=== PATIENT | female | born 1995 | race Caucasian/White ===

== ENCOUNTER → 2020-03-19 | Outpatient (CLI) | payer BC ==
--- NOTE | 2020-03-19 11:56 | MR ---
EXAMINATION TYPE: MR brain wo con DATE OF EXAM: 03/19/2020 COMPARISON: NONE HISTORY: Migraine without aura per order. Headaches getting worse everyday per patient. TECHNIQUE: Multiplanar, multisequence imaging of the brain and brainstem is performed without IV cont rast. FINDINGS: Diffusion weighted images demonstrate no evidence of a recent infarct or other diffusion abnormality. There is no extraaxial fluid collection or significant white matter signal abnormality. The ventricu lar system and cisternal spaces are normal in size and appearance. The brain volume is age appropria te. Midline structures demonstrate normal morphology. The craniocervical junction appears within normal limits. Normal vascular flow voids are present. The visualized sinuses are clear and the globes are i ntact. Some prominent but subcentimeter lymph nodes incidentally noted in visualized portion of the b ilateral neck. IMPRESSION: No suspicious white matter changes. No Chiari type I malformation. Fairly unremarkable st udy.
== END | disposition home or self-care (01) ==
LOC: RADMRIMAIN 06:32
PROVIDERS: ATTEND Family Medicine
DX: G43.009 Migraine without aura, not intractable, without status migrainosus (principal)
CPT/HCPCS: 70551

== ENCOUNTER 2020-05-21 10:36 | Emergency (ER) | payer BC ==
[2020-05-21 10:58] VITALS: RESP 18; TEMP 99.3
[2020-05-21] MEDS ORDERED: KETOROLAC 15 MG/ML 1 ML VIAL IVP STA (11:18)
[2020-05-21] MEDS ORDERED: MECLIZINE 12.5 MG TAB PO STA (11:18)
[2020-05-21] MEDS ORDERED: ONDANSETRON 4 MG/2 ML VIAL IVP STA (11:18)
[2020-05-21] MEDS ORDERED: SODIUM CHLORIDE 0.9% 1,000 ML IV STA (11:18)
[2020-05-21 11:53] LABS: Basophils % (A) 0 %; Eosinophils # (A) 0.1 k/uL (0-0.7); Eosinophils % (A) 1 %; HCT 44.2 % (34.0-46.0); HGB 14.1 gm/dL (11.4-16.0); Lymphocytes # (A) 1.5 k/uL (1.0-4.8); Lymphocytes % (A) 18 %; MCH 25.7 pg (25.0-35.0); MCV 80.5 fL (80.0-100.0); Monocytes # (A) 0.4 k/uL (0-1.0); Monocytes % (A) 5 %; Neutrophils # (A) 6.1 k/uL (1.3-7.7); Neutrophils % (A) 74 %; Platelet Count 313 k/uL (150-450); RBC 5.49 m/uL (3.80-5.40); RDW 14.8 % (11.5-15.5); WBC 8.2 k/uL (3.8-10.6)
[2020-05-21 12:02] LABS: ALT 19 U/L (4-34); African American GFR (CKD) >90 (>60 ml/min/1.73 sqM); Albumin 4.3 g/dL (3.5-5.0); Anion Gap 9 mmol/L; Blood Urea Nitrogen 13 mg/dL (7-17); Carbon Dioxide 23 mmol/L (22-30); Chloride 108 mmol/L (98-107); Glucose 95 mg/dL (74-99); Non-African American GFR(CKD) >90 (>60 ml/min/1.73 sqM); Sodium 140 mmol/L (137-145); Total Bilirubin 0.6 mg/dL (0.2-1.3); Total Protein 7.7 g/dL (6.3-8.2)
[2020-05-21 12:07] LABS: AST 33 U/L (14-36); Alkaline Phosphatase 82 U/L (38-126); Potassium 4.8 mmol/L (3.5-5.1)
[2020-05-21 12:13] LABS: Appearance,Urine Clear (Clear); Bilirubin,Urine Negative (Negative); Blood,Urine Moderate (Negative); Color,Urine Yellow; Glucose,Urine (UA) Negative (Negative); Ketones,Urine Negative (Negative); Leukocyte Esterase,Urine Negative (Negative); Mucus,Urine Rare /hpf; Nitrite,Urine Negative (Negative); Protein,Urine Trace (Negative); RBC,Urine >182 /hpf (0-5); Specific Gravity,Urine 1.024 (1.001-1.035); Squamous Epithelial Cell,Urine <1 /hpf (0-4); Urobilinogen,Urine <2.0 mg/dL (<2.0); WBC,Urine 2 /hpf (0-5)
--- NOTE | 2020-05-21 12:20 | ED ---
Dizziness HPI - General Chief Complaint: Dizziness Stated Complaint: dizziness, vomiting Time Seen by Provider: 05/21/20 11:10 Source: patient Mode of arrival: ambulatory Limitations: no limitations - Related Data Home Medications Medication Instructions Recorded Confirmed Ferrous Sulfate [Feosol] 325 mg PO DAILY 05/21/20 05/21/20 Propranolol LA [Inderal LA] 80 mg PO DAILY 05/21/20 05/21/20 SUMAtriptan SUCCINATE [Imitrex] 50 mg PO DAILY PRN 05/21/20 05/21/20 Topiramate 50 mg PO DAILY 05/21/20 05/21/20 Previous Rx's Medication Instructions Recorded Ondansetron Odt [Zofran Odt] 4 mg PO Q8HR PRN #10 tab 05/21/20 Allergies Allergy/AdvReac Type Severity Reaction Status Date / Time No Known Allergies Allergy Verified 05/21/20 11:50 Review of Systems ROS Statement: Those systems with pertinent positive or pertinent negative responses have been documented in the HPI. ROS Other: All systems not noted in ROS Statement are negative. Past Medical History Additional Past Medical History / Comment(s): headache History of Any Multi-Drug Resistant Organisms: None Reported Past Surgical History: No Surgical Hx Reported Past Psychological History: No Psychological Hx Reported Smoking Status: Never smoker Past Alcohol Use History: None Reported Past Drug Use History: Marijuana General Exam Limitations: no limitations Course Vital Signs 05/21/20 05/21/20 10:55 11:44 Temperature 99.3 F Pulse Rate 86 92 Respiratory 18 18 Rate Blood Pressure 141/81 150/101 O2 Sat by Pulse 98 100 Oximetry EKG Findings - EKG Comments: EKG Findings:: 11:20 normal sinus rhythm rate of 78 NV 118 QRS 82 QT/QTC 366/417 Medical Decision Making - Medical Decision Making 25-year-old presented for ongoing headaches, dizziness. Patient has been evaluated by her PCP she's had an MRI which then within normal limits. Patient had basic labs today which were unremarkable patient given migraine cocktail symptoms have improved. Patient was started on sumatriptan but she has not started for headaches. Patient will follow-up with urology and return for any worsening symptoms. - Lab Data Result diagrams: 05/21/20 11:33 05/21/20 11:33 Lab Results 05/21/20 05/21/20 05/21/20 Range/Units 11:33 11:33 11:33 WBC 8.2 (3.8-10.6) k/uL RBC 5.49 H (3.80-5.40) m/uL Hgb 14.1 (11.4-16.0) gm/dL Hct 44.2 (34.0-46.0) % MCV 80.5 (80.0-100.0) fL MCH 25.7 (25.0-35.0) pg MCHC 32.0 (31.0-37.0) g/dL RDW 14.8 (11.5-15.5) % Plt Count 313 (150-450) k/uL Neutrophils % 74 % Lymphocytes % 18 % Monocytes % 5 % Eosinophils % 1 % Basophils % 0 % Neutrophils # 6.1 (1.3-7.7) k/uL Lymphocytes # 1.5 (1.0-4.8) k/uL Monocytes # 0.4 (0-1.0) k/uL Eosinophils # 0.1 (0-0.7) k/uL Basophils # 0.0 (0-0.2) k/uL Sodium 140 (137-145) mmol/L Potassium 4.8 (3.5-5.1) mmol/L Chloride 108 H (98-107) mmol/L Carbon Dioxide 23 (22-30) mmol/L Anion Gap 9 mmol/L BUN 13 (7-17) mg/dL Creatinine 0.64 (0.52-1.04) mg/dL Est GFR (CKD-EPI)AfAm >90 (>60 ml/min/1.73 sqM) Est GFR (CKD-EPI)NonAf >90 (>60 ml/min/1.73 sqM) Glucose 95 (74-99) mg/dL Calcium 9.0 (8.4-10.2) mg/dL Total Bilirubin 0.6 (0.2-1.3) mg/dL AST 33 (14-36) U/L ALT 19 (4-34) U/L Alkaline Phosphatase 82 (38-126) U/L Total Protein 7.7 (6.3-8.2) g/dL Albumin 4.3 (3.5-5.0) g/dL Urine Color Urine Appearance (Clear) Urine pH (5.0-8.0) Ur Specific Henry (1.001-1.035) Urine Protein (Negative) Urine Glucose (UA) (Negative) Urine Ketones (Negative) Urine Blood (Negative) Urine Nitrite (Negative) Urine Bilirubin (Negative) Urine Urobilinogen (<2.0) mg/dL Ur Leukocyte Esterase (Negative) Urine RBC (0-5) /hpf Urine WBC (0-5) /hpf Ur Squamous Epith Cells (0-4) /hpf Urine Mucus (None) /hpf Urine HCG, Qual Not Detected (Not Detectd) 05/21/20 Range/Units 11:34 WBC (3.8-10.6) k/uL RBC (3.80-5.40) m/uL Hgb (11.4-16.0) gm/dL Hct (34.0-46.0) % MCV (80.0-100.0) fL MCH (25.0-35.0) pg MCHC (31.0-37.0) g/dL RDW (11.5-15.5) % Plt Count (150-450) k/uL Neutrophils % % Lymphocytes % % Monocytes % % Eosinophils % % Basophils % % Neutrophils # (1.3-7.7) k/uL Lymphocytes # (1.0-4.8) k/uL Monocytes # (0-1.0) k/uL Eosinophils # (0-0.7) k/uL Basophils # (0-0.2) k/uL Sodium (137-145) mmol/L Potassium (3.5-5.1) mmol/L Chloride (98-107) mmol/L Carbon Dioxide (22-30) mmol/L Anion Gap mmol/L BUN (7-17) mg/dL Creatinine (0.52-1.04) mg/dL Est GFR (CKD-EPI)AfAm (>60 ml/min/1.73 sqM) Est GFR (CKD-EPI)NonAf (>60 ml/min/1.73 sqM) Glucose (74-99) mg/dL Calcium (8.4-10.2) mg/dL Total Bilirubin (0.2-1.3) mg/dL AST (14-36) U/L ALT (4-34) U/L Alkaline Phosphatase (38-126) U/L Total Protein (6.3-8.2) g/dL Albumin (3.5-5.0) g/dL Urine Color Yellow Urine Appearance Clear (Clear) Urine pH 7.0 (5.0-8.0) Ur Specific Henry 1.024 (1.001-1.035) Urine Protein Trace H (Negative) Urine Glucose (UA) Negative (Negative) Urine Ketones Negative (Negative) Urine Blood Moderate H (Negative) Urine Nitrite Negative (Negative) Urine Bilirubin Negative (Negative) Urine Urobilinogen <2.0 (<2.0) mg/dL Ur Leukocyte Esterase Negative (Negative) Urine RBC >182 H (0-5) /hpf Urine WBC 2 (0-5) /hpf Ur Squamous Epith Cells <1 (0-4) /hpf Urine Mucus Rare H (None) /hpf Urine HCG, Qual (Not Detectd) Disposition Clinical Impression: Migraine Disposition: HOME SELF-CARE Condition: Stable Instructions (If sedation given, give patient instructions): Migraine Headache (ED) Additional Instructions: Please return to the Emergency Department if symptoms worsen or any other concerns. Prescriptions: Ondansetron Odt [Zofran Odt] 4 mg PO Q8HR PRN #10 tab PRN Reason: Nausea Is patient prescribed a controlled substance at d/c from ED?: No Referrals: Thai Simpson MD [Primary Care Provider] - 1-2 days Quique Amador DO [STAFF PHYSICIAN] - 1-2 days Macy Brewer MD [REFERRING] - 1-2 days Time of Disposition: 12:19
[2020-05-21 12:36] VITALS: BP 149/93; PULSE 88
== END 2020-05-21 12:32 | disposition home or self-care (01) ==
LOC: EC 10:36
DX: G43.909 Migraine, unspecified, not intractable, without status migrainosus (principal); Z79.899 Other long term (current) drug therapy
CPT/HCPCS: 36415; 93005; 80053; 85025; 81001; 81025; 99284; 96374; 96375; 96361; J2405; J1885

== ENCOUNTER → 2020-05-28 | Outpatient (CLI) | payer BC ==
--- NOTE | 2020-05-28 15:19 | US ---
EXAMINATION TYPE: US pelvic complete DATE OF EXAM: 05/28/2020 COMPARISON: NONE CLINICAL HISTORY: N926 [id number].Abnormal periods. TECHNIQUE: Transabdominal (TA). Transabdominal sonographic images of the pelvis were acquired. EXAM MEASUREMENTS: Uterus: 8.2 x 2.6 x 5.4 cm Endometrial Stripe: .6 cm Right Ovary: 2.5 x 2.6 x 1.8 cm Left Ovary: 2.8 x 2.1 x 2.1 cm 1. Uterus: Anteverted wnl 2. Endometrium: wnl 3. Right Ovary: wnl 4. Left Ovary: wnl 5. Bilateral Adnexa: wnl 6. Posterior cul-de-sac: wnl Posterior wall urinary bladder appears normal. IMPRESSION: 1. Pelvic ultrasound appears unremarkable.
== END | disposition home or self-care (01) ==
LOC: RADUSWWP 14:49
PROVIDERS: ATTEND Family Medicine
DX: N92.6 Irregular menstruation, unspecified (principal); D50.9 Iron deficiency anemia, unspecified
CPT/HCPCS: 76856

== ENCOUNTER 2020-07-09 22:06 | Emergency (ER) | payer BC ==
--- NOTE | 2020-07-09 22:41 | ED ---
Neck Injury/Pain HPI - General Chief Complaint: Neck Pain/Injury Stated Complaint: Neck Injury Time Seen by Provider: 07/09/20 22:27 Mode of arrival: ambulatory Limitations: no limitations - History of Present Illness Initial Comments: 25-year-old female presenting to emergency with a chief complaint of neck pain and head injury. Patient states this occurred about 3 hours prior to arrival. Patient states she sleeps in an air mattress which is on top of her boxspring and a frame. this is approx. 3-4 feet off the ground. Patient arrived in a c- collar that her friend gave her. Patient states she did have some dizziness with the room spinning around her. Also reports nausea or vomiting. Denies any syncopal episodes. No blood thinners. Denies one-sided weakness or pa resthesias. States the neck pain is worse with leftward rotation. - Related Data Home Medications Medication Instructions Recorded Confirmed Ferrous Sulfate [Feosol] 325 mg PO DAILY 05/21/20 05/21/20 Propranolol LA [Inderal LA] 80 mg PO DAILY 05/21/20 05/21/20 SUMAtriptan SUCCINATE [Imitrex] 50 mg PO DAILY PRN 05/21/20 05/21/20 Topiramate 50 mg PO DAILY 05/21/20 05/21/20 Previous Rx's Medication Instructions Recorded Ondansetron Odt [Zofran Odt] 4 mg PO Q8HR PRN #10 tab 05/21/20 Allergies Allergy/AdvReac Type Severity Reaction Status Date / Time No Known Allergies Allergy Verified 07/09/20 22:10 Review of Systems ROS Statement: Those systems with pertinent positive or pertinent negative responses have been documented in the HPI. ROS Other: All systems not noted in ROS Statement are negative. Past Medical History Additional Past Medical History / Comment(s): headache History of Any Multi-Drug Resistant Organisms: None Reported Past Surgical History: No Surgical Hx Reported Past Psychological History: No Psychological Hx Reported Smoking Status: Never smoker Past Alcohol Use History: None Reported Past Drug Use History: Marijuana General Exam Limitations: no limitations General appearance: alert, in no apparent distress Head exam: Present: atraumatic, normocephalic, normal inspection. Absent: other (Negative Allen sign, raccoon eyes, hemotympanum.) Eye exam: Present: normal appearance, PERRL, EOMI. Absent: scleral icterus, conjunctival injection, nystagmus Pupils: Present: normal accommodation ENT exam: Present: normal exam, normal oropharynx, mucous membranes moist, TM's normal bilaterally, normal external ear exam Neck exam: Present: normal inspection, tenderness (Bilateral tenderness along the trapezii), full ROM Respiratory exam: Present: normal lung sounds bilaterally. Absent: respiratory distress, wheezes, rales Cardiovascular Exam: Present: regular rate, normal rhythm, normal heart sounds. Absent: systolic murmur, diastolic murmur Extremities exam: Present: normal inspection, full ROM, normal capillary refill. Absent: tenderness, pedal edema, joint swelling, calf tenderness Back exam: Present: normal inspection, full ROM. Absent: tenderness, CVA tenderness (R), CVA tenderness (L) Neurological exam: Present: alert, oriented X3 Psychiatric exam: Present: normal affect, normal mood. Absent: agitated Skin exam: Present: warm, dry, intact, normal color Course Vital Signs 07/09/20 07/09/20 07/10/20 22:08 23:30 01:20 Temperature 98.6 F 97.7 F Pulse Rate 90 85 86 Respiratory 18 18 17 Rate Blood Pressure 169/94 136/86 139/84 O2 Sat by Pulse 98 97 98 Oximetry Medical Decision Making - Medical Decision Making 25-year-old female presenting to emergency with a chief complaint of neck pain. On physical examination, patient has bilateral tenderness along the trapezius. No midline cervical tenderness. She continued to feel nauseous and was given Zofran. CT of the head and cervical spine reveals no acute fractures, dislocations or intracranial hemorrhage. Patient was advised to alternate between Tylenol and Motrin for pain control. Strict return parameters were thoroughly discussed with patient was understanding and agreeable. Case discussed with physician. Disposition Clinical Impression: Head injury, Fall, Neck pain Disposition: HOME SELF-CARE Condition: Stable Instructions (If sedation given, give patient instructions): Cervical Strain (ED), Concussion (ED) Additional Instructions: Follow with primary care physician. Return to emergency department if symptoms worsen. Is patient prescribed a controlled substance at d/c from ED?: No Referrals: Thai Simpson MD [Primary Care Provider] - 1-2 days Time of Disposition: 01:12
[2020-07-10] MEDS ORDERED: ONDANSETRON 4 MG TAB PO STA (00:43)
--- NOTE | 2020-07-10 00:43 | CT ---
EXAMINATION TYPE: CT brain cspine wo con DATE OF EXAM: 07/09/2020 COMPARISON: None HISTORY: back and neck pain after fall, vomiting CT DLP: 1747.5 mGycm Automated exposure control for dose reduction was used. Ventricles have normal size. There is no mass effect nor midline shift. There is no sign of intracran ial hemorrhage. Calvarium is intact. Skull base is intact. There is normal aeration of the mastoid si nuses. Cervical vertebra have normal spacing and alignment. Posterior elements are intact. Facet joints are intact. There is no evidence of a fracture. IMPRESSION: Normal CT scan cervical spine. Negative CT scan of the brain. No evidence of traumatic injury.
[2020-07-10 01:25] VITALS: BP 139/84; PULSE 86; RESP 17; TEMP 97.7
== END 2020-07-10 01:20 | disposition home or self-care (01) ==
LOC: EC 22:06
DX: S09.90XA Unspecified injury of head, initial encounter (principal); M54.2 Cervicalgia; R11.0 Nausea; Z79.899 Other long term (current) drug therapy; W06.XXXA Fall from bed, initial encounter
CPT/HCPCS: 70450; 72125; 99283

== ENCOUNTER 2020-08-23 16:25 | Emergency (ER) | payer BC ==
[2020-08-23 16:29] VITALS: TEMP 98.9
--- NOTE | 2020-08-23 16:48 | ED ---
Chest Pain HPI - General Chief Complaint: Chest Pain Stated Complaint: High BP/chest pain Time Seen by Provider: 08/23/20 16:32 Source: patient, RN notes reviewed Mode of arrival: ambulatory Limitations: no limitations - History of Present Illness Initial Comments: This is a 25-year-old female with no personal history of hypertension or heart disease. Family history of hypertension including a sister that is 2 years older than her who had a friend take her pressure today and found have a 200/150 blood pressure is been apparently intermittently up and down her last couple days. She does have a history of chronic headaches that she's had since little girl she is currently on Topamax and was taking sumatriptan 4 times a day as needed she does admit she took some extra sumatriptan. Currently no visual disturbances headaches fevers chills nausea vomiting sweats she states the pain was in the right upper chest area somewhat sharp in nature she does not do much in way of physical activity she states this time no recent weight loss or weight gain no dysuria no hematuria no other complaints or modifying factors at this time. MD Complaint: chest pain, other - Related Data Home Medications Medication Instructions Recorded Confirmed SUMAtriptan SUCCINATE [Imitrex] 50 mg PO DAILY PRN 05/21/20 08/23/20 Apri 1 tab PO DAILY 08/23/20 08/23/20 Ibuprofen [Children's Motrin Susp] 600 mg PO Q8H PRN 08/23/20 08/23/20 Topiramate [Topamax] 100 mg PO HS 08/23/20 08/23/20 Allergies Allergy/AdvReac Type Severity Reaction Status Date / Time No Known Allergies Allergy Verified 08/23/20 18:19 Review of Systems ROS Statement: Those systems with pertinent positive or pertinent negative responses have been documented in the HPI. ROS Other: All systems not noted in ROS Statement are negative. Past Medical History Additional Past Medical History / Comment(s): headache History of Any Multi-Drug Resistant Organisms: None Reported Past Surgical History: No Surgical Hx Reported Past Psychological History: No Psychological Hx Reported Smoking Status: Never smoker Past Alcohol Use History: None Reported Past Drug Use History: Marijuana General Exam - General Exam Comments Initial Comments: This is a well-developed well-nourished awake alert oriented 5 female Limitations: no limitations General appearance: alert, in no apparent distress Head exam: Present: atraumatic, normocephalic, normal inspection Eye exam: Present: normal appearance, PERRL, EOMI. Absent: scleral icterus, conjunctival injection, periorbital swelling ENT exam: Present: normal exam, mucous membranes moist Neck exam: Present: normal inspection, full ROM, other (No stridor JVD or bruits). Absent: tenderness, meningismus, lymphadenopathy Respiratory exam: Present: normal lung sounds bilaterally, chest wall tenderness (Reproducible tennis palpation along the left costal sternal margin no step-off or crepitation). Absent: respiratory distress, wheezes, rales, rhonchi, stridor Cardiovascular Exam: Present: normal rhythm, tachycardia, normal heart sounds. Absent: systolic murmur, diastolic murmur, rubs, gallop, clicks GI/Abdominal exam: Present: soft, normal bowel sounds. Absent: distended, tenderness, guarding, rebound, rigid Extremities exam: Present: normal inspection, full ROM, normal capillary refill. Absent: tenderness, pedal edema, joint swelling, calf tenderness Back exam: Present: normal inspection Neurological exam: Present: alert, oriented X3, CN II-XII intact Psychiatric exam: Present: normal affect, normal mood Skin exam: Present: warm, dry, intact, normal color. Absent: rash Course Vital Signs 08/23/20 08/23/20 08/23/20 16:27 16:59 17:00 Temperature 98.9 F Pulse Rate 113 H 89 Pulse Rate [ 93 Garment Turner ] Respiratory 20 16 17 Rate Blood Pressure 163/98 144/76 O2 Sat by Pulse 96 98 Oximetry 08/23/20 17:30 Temperature Pulse Rate 93 Pulse Rate [ Garment Turner ] Respiratory 20 Rate Blood Pressure 144/77 O2 Sat by Pulse 98 Oximetry Chest Pain [facility] - [facility] EKG shows normal sinus rhythm 87. Interval 126 QRS 82 QT since QTC 358/[address]-T wave changes. Patient has normalized with respect her blood pressure she'll be discharged to follow-up with her doctor. Disposition Clinical Impression: Hypertension, Costochondritis Disposition: HOME SELF-CARE Condition: Good Instructions (If sedation given, give patient instructions): Costochondritis (ED) Is patient prescribed a controlled substance at d/c from ED?: No Referrals: Thai Simpson MD [Primary Care Provider] - 1-2 days
[2020-08-23 17:29] LABS: Basophils % (A) 0 %; Eosinophils # (A) 0.1 k/uL (0-0.7); Eosinophils % (A) 1 %; HCT 43.9 % (34.0-46.0); HGB 14.3 gm/dL (11.4-16.0); Lymphocytes % (A) 19 %; MCH 26.3 pg (25.0-35.0); MCHC 32.6 g/dL (31.0-37.0); MCV 80.5 fL (80.0-100.0); Mean Platelet Volume 6.2; Monocytes # (A) 0.4 k/uL (0-1.0); Monocytes % (A) 4 %; Neutrophils % (A) 75 %; Platelet Count 318 k/uL (150-450); RBC 5.45 m/uL (3.80-5.40); RDW 14.7 % (11.5-15.5); WBC 10.7 k/uL (3.8-10.6)
--- NOTE | 2020-08-23 17:39 | XR ---
EXAMINATION TYPE: XR chest 2V DATE OF EXAM: 08/23/2020 COMPARISON: NONE HISTORY: Chest pain TECHNIQUE: FINDINGS: Heart and mediastinum are normal. Lungs are clear. Diaphragm is normal. Bony thorax appears normal. IMPRESSION: Normal chest.
[2020-08-23 17:40] LABS: ALT 19 U/L (4-34); AST 22 U/L (14-36); African American GFR (CKD) >90 (>60 ml/min/1.73 sqM); Albumin 4.4 g/dL (3.5-5.0); Alkaline Phosphatase 89 U/L (38-126); Anion Gap 10 mmol/L; Blood Urea Nitrogen 12 mg/dL (7-17); Calcium 9.6 mg/dL (8.4-10.2); Carbon Dioxide 26 mmol/L (22-30); Chloride 106 mmol/L (98-107); Creatine Kinase 36 U/L (30-135); Glucose 109 mg/dL (74-99); Magnesium 1.9 mg/dL (1.6-2.3); Non-African American GFR(CKD) >90 (>60 ml/min/1.73 sqM); Potassium 4.2 mmol/L (3.5-5.1); Sodium 142 mmol/L (137-145); Total Bilirubin 0.4 mg/dL (0.2-1.3); Total Protein 7.9 g/dL (6.3-8.2)
[2020-08-23 17:47] LABS: Appearance,Urine Clear (Clear); Bacteria,Urine Rare /hpf; Bilirubin,Urine Negative (Negative); Blood,Urine Negative (Negative); Color,Urine Yellow; Glucose,Urine (UA) Negative (Negative); Ketones,Urine Negative (Negative); Leukocyte Esterase,Urine Small (Negative); Mucus,Urine Few /hpf; Nitrite,Urine Negative (Negative); PH, Urine 5.5 (5.0-8.0); Protein,Urine Trace (Negative); Specific Gravity,Urine 1.032 (1.001-1.035); Squamous Epithelial Cell,Urine 1 /hpf (0-4); Urobilinogen,Urine <2.0 mg/dL (<2.0); WBC,Urine 1 /hpf (0-5)
[2020-08-23 17:49] LABS: D-Dimer 0.18 mg/L FEU (<0.60); INR 0.9 (<1.2); Partial Thromboplastin Time 21.7 sec (22.0-30.0); Prothrombin Time 9.8 sec (9.0-12.0)
[2020-08-23 18:40] VITALS: BP 124/64; PULSE 98; RESP 18
== END 2020-08-23 18:39 | disposition home or self-care (01) ==
LOC: EC 16:25
DX: I10 Essential (primary) hypertension (principal); M94.0 Chondrocostal junction syndrome [Tietze]; Z79.899 Other long term (current) drug therapy; Z79.3 Long term (current) use of hormonal contraceptives
CPT/HCPCS: 36415; 71046; 80053; 81001; 81025; 82550; 83735; 83880; 84484; 85025; 85379; 85610; 85730; 93005; 99285

== ENCOUNTER 2020-08-31 15:49 | Emergency (ER) | payer BC ==
--- NOTE | 2020-08-31 16:15 | ED ---
Headache HPI - General Chief Complaint: Headache Stated Complaint: Headache Time Seen by Provider: 08/31/20 15:55 Mode of arrival: ambulatory Limitations: no limitations - History of Present Illness Initial Comments: 25-year-old feel presenting today for chief complaints of headache, paresthesias. Patient states that she has had a headache since Tuesday she states that she woke up with that she denies it coming on suddenly. Patient states this is the worst headache as it has not gone away in days, not necessarily intensity. Patient states she has had history of headaches. She denies nausea vomiting visual changes diplopia she states she has had some on-and-off tingling of the right arm and right leg-that has gone away. she denies decreased strength she denies speech changes she denies dizziness or feeling off balance she denies neck pain. Patietn denies history of aneursym, she denies chest pain shortness of breath changes in urination amount/colors, denies abdominal or back pain. Patient states that she has had episodes of high blood pressure before, but is not on medications and states "its not always high". Patient appears nontoxic on arrival. - Related Data Home Medications Medication Instructions Recorded Confirmed SUMAtriptan SUCCINATE [Imitrex] 50 mg PO DAILY PRN 05/21/20 08/31/20 Apri 1 tab PO DAILY 08/23/20 08/31/20 Ibuprofen [Children's Motrin Susp] 600 mg PO Q8H PRN 08/23/20 08/31/20 Topiramate [Topamax] 100 mg PO HS 08/23/20 08/31/20 Allergies Allergy/AdvReac Type Severity Reaction Status Date / Time No Known Allergies Allergy Verified 08/31/20 15:53 Review of Systems ROS Statement: Those systems with pertinent positive or pertinent negative responses have been documented in the HPI. ROS Other: All systems not noted in ROS Statement are negative. Past Medical History Additional Past Medical History / Comment(s): headache History of Any Multi-Drug Resistant Organisms: None Reported Past Surgical History: No Surgical Hx Reported Past Psychological History: No Psychological Hx Reported Smoking Status: Never smoker, Vaper Past Alcohol Use History: None Reported Past Drug Use History: Marijuana General Exam - General Exam Comments Initial Comments: General: The patient is awake and alert, in no distress, and does not appear acutely ill. Eye: +3 mm pupils are equal, round and reactive to light, extra-ocular movements are intact. No nystagmus. There is normal conjunctiva bilaterally. No signs of icterus. Ears, nose, mouth and throat: There are moist mucous membranes and no oral lesions. Neck: The neck is supple, there is no tenderness or JVD. Cardiovascular: There is a regular rate and rhythm. No murmur, rub or gallop is appreciated. Respiratory: Lungs are clear to auscultation, respirations are non-labored, breath sounds are equal. No wheezes, stridor, rales, or rhonchi. Gastrointestinal: [Soft, non-distended, non-tender abdomen without masses or organomegaly noted. There is no rebound or guarding present. No CVA tenderness. Bowel sounds are unremarkable.] Musculoskeletal: Normal ROM, no tenderness. Strength 5/5. Sensation intact. Pulses equal bilaterally 2+. Neurological: A&O x 3. CN II-XII intact, memory intact to immediately, intermediate and intermodal dispatcher recall. Able to follow simple verbal. Able to name a common object-pen. High quality, labial (pa) and lingual (la) speech. Low quality posterior pharynx/larynx (ga) voice sounds. Able to express general knowledge (days in a week). No hemineglect or inattention noted. Finger agnosia (-) and spatially oriented (identified L index finger touched R shoulder with L index finger). . Light touch and temperature sensation present over the face, chest, abdomen, back, UE bilaterally, and LE bilaterally. Able to localize point during point localization b/l and extinction. No visible bulk atrophy, hypertrophy, fasciculations, or myoclonus of the UE or LE b/l. Full PROM in UE and LE b/l. Bilateral muscle strength 5/5 for the following muscles: deltoid, biceps, triceps, brachioradialis, wrist extensors/flexor, hip flexor, hip a bductors/adductors, hamstrings, quadriceps, feet dorsiflexors/plantar flexors. Finger to nose, finger to the examiners finger, and heel to collins coordinated and accurate b/l. Coordinated and even demonstration of hand flip, finger to thumb, and toe tap b/l.Gait is coordinated and even in stride with tandem.. (-) pronator drift. No nuchal rigidity. (-) Brudzinskis and Kernig signs. Skin: Skin is warm and dry and no rashes or lesions are noted. Psychiatric: Cooperative, appropriate mood & affect, normal judgment. Limitations: no limitations Course Vital Signs 08/31/20 08/31/20 15:51 17:04 Temperature 97.7 F Pulse Rate 122 H 99 Respiratory 20 16 Rate Blood Pressure 166/126 123/72 O2 Sat by Pulse 99 98 Oximetry - Reevaluation(s) Reevaluation #1: Pt later admitted she has chronic migraines, pt BP improved. 08/31/20 17:28 Medical Decision Making - Medical Decision Making Pt with hx of headaches, sees neurologist (did not initially tell us) presenting for long lasting headache. denies sudden onset/thunder clamp. Initially BP high, without BP medications BP normalized. pt CT/CTA (-). Pt states she wants to go home on reevaluation. States headache completely resolved. Patient repeat neurological exam no changes. no parathesias. pt EKG WNL. labs stable, mild leukocytosis. pt will be discharged [facility] outpatient neurology f/u. Dr Bermudez agreeable to care plan. - Lab Data Result diagrams: 08/31/20 16:15 08/31/20 16:15 Lab Results 08/31/20 08/31/20 08/31/20 Range/Units 16:15 16:15 16:15 WBC 12.3 H (3.8-10.6) k/uL RBC 6.25 H (3.80-5.40) m/uL Hgb 17.0 H (11.4-16.0) gm/dL Hct 50.2 H (34.0-46.0) % MCV 80.3 (80.0-100.0) fL MCH 27.1 (25.0-35.0) pg MCHC 33.8 (31.0-37.0) g/dL RDW 14.5 (11.5-15.5) % Plt Count 333 (150-450) k/uL MPV 6.3 Neutrophils % 73 % Lymphocytes % 20 % Monocytes % 4 % Eosinophils % 1 % Basophils % 1 % Neutrophils # 9.0 H (1.3-7.7) k/uL Lymphocytes # 2.4 (1.0-4.8) k/uL Monocytes # 0.4 (0-1.0) k/uL Eosinophils # 0.2 (0-0.7) k/uL Basophils # 0.2 (0-0.2) k/uL Sodium 141 (137-145) mmol/L Potassium 4.4 (3.5-5.1) mmol/L Chloride 108 H (98-107) mmol/L Carbon Dioxide 22 (22-30) mmol/L Anion Gap 11 mmol/L BUN 10 (7-17) mg/dL Creatinine 0.64 (0.52-1.04) mg/dL Est GFR (CKD-EPI)AfAm >90 (>60 ml/min/1.73 sqM) Est GFR (CKD-EPI)NonAf >90 (>60 ml/min/1.73 sqM) Glucose 100 H (74-99) mg/dL Calcium 9.1 (8.4-10.2) mg/dL Total Bilirubin 0.5 (0.2-1.3) mg/dL AST 27 (14-36) U/L ALT 22 (4-34) U/L Alkaline Phosphatase 83 (38-126) U/L Troponin I <0.012 (0.000-0.034) ng/mL Total Protein 7.5 (6.3-8.2) g/dL Albumin 4.2 (3.5-5.0) g/dL Disposition Clinical Impression: Headache, History of paresthesia Disposition: HOME SELF-CARE Condition: Good Instructions (If sedation given, give patient instructions): Acute Headache (ED) Additional Instructions: Please use medication as discussed. Please follow-up with family doctor in the next 2 days. Please return to emergency room if the symptoms increase or worsen or for any other concerns. Is patient prescribed a controlled substance at d/c from ED?: No Referrals: Thai Simpson MD [Primary Care Provider] - 1-2 days Time of Disposition: 17:44
[2020-08-31] MEDS ORDERED: ONDANSETRON 4 MG/2 ML VIAL IVP STA (16:25)
[2020-08-31] MEDS ORDERED: diphenhydrAMINE 50 MG/ML 1 ML VIAL IVP STA (16:25)
[2020-08-31] MEDS ORDERED: HYDROmorphone 0.5 MG/0.5 ML SYRINGE IVP STA (16:25)
[2020-08-31 16:31] LABS: Basophils # (A) 0.2 k/uL (0-0.2); Basophils % (A) 1 %; Eosinophils # (A) 0.2 k/uL (0-0.7); Eosinophils % (A) 1 %; HCT 50.2 % (34.0-46.0); Lymphocytes # (A) 2.4 k/uL (1.0-4.8); Lymphocytes % (A) 20 %; MCH 27.1 pg (25.0-35.0); MCHC 33.8 g/dL (31.0-37.0); MCV 80.3 fL (80.0-100.0); Mean Platelet Volume 6.3; Monocytes # (A) 0.4 k/uL (0-1.0); Monocytes % (A) 4 %; Neutrophils % (A) 73 %; Platelet Count 333 k/uL (150-450); RBC 6.25 m/uL (3.80-5.40); RDW 14.5 % (11.5-15.5); WBC 12.3 k/uL (3.8-10.6)
[2020-08-31 16:40] LABS: ALT 22 U/L (4-34); AST 27 U/L (14-36); African American GFR (CKD) >90 (>60 ml/min/1.73 sqM); Albumin 4.2 g/dL (3.5-5.0); Alkaline Phosphatase 83 U/L (38-126); Anion Gap 11 mmol/L; Blood Urea Nitrogen 10 mg/dL (7-17); Calcium 9.1 mg/dL (8.4-10.2); Carbon Dioxide 22 mmol/L (22-30); Chloride 108 mmol/L (98-107); Glucose 100 mg/dL (74-99); Non-African American GFR(CKD) >90 (>60 ml/min/1.73 sqM); Potassium 4.4 mmol/L (3.5-5.1); Sodium 141 mmol/L (137-145); Total Bilirubin 0.5 mg/dL (0.2-1.3); Total Protein 7.5 g/dL (6.3-8.2)
--- NOTE | 2020-08-31 16:45 | XR ---
EXAMINATION TYPE: XR chest 2V DATE OF EXAM: 08/31/2020 COMPARISON: 08/23/2020 HISTORY: Altered mental status TECHNIQUE: FINDINGS: Heart and mediastinum are normal. Lungs are clear. Diaphragm is normal. Bony thorax appears normal. IMPRESSION: Normal chest. No change.
--- NOTE | 2020-08-31 17:05 | CT ---
EXAMINATION TYPE: CT brain wo con DATE OF EXAM: 08/31/2020 COMPARISON: 07/09/2020 HISTORY: headache CT DLP: 1079.8 mGycm Automated exposure control for dose reduction was used. Ventricles and sulci appear normal. There is no mass effect nor midline shift. There is no sign of in tracranial hemorrhage. The calvarium is intact. There is no evidence of cerebral edema. IMPRESSION: Normal unenhanced head CT scan. No change.
[2020-08-31 17:07] VITALS: RESP 16
--- NOTE | 2020-08-31 17:31 | CT ---
EXAMINATION TYPE: CT angio head neck DATE OF EXAM: 08/31/2020 COMPARISON: None HISTORY: Headache, elevated BP, parathesias, not called as code stroke CT DLP: 1021.6 mGycm Automated exposure control for dose reduction was used. CONTRAST: Performed with IV Contrast, patient injected with 65 mL of Isovue 370. There are 3-D post processed images. Images were obtained from the aortic arch to the vertex of the b rain. FINDINGS: There is normal branching pattern of the great vessels on the aortic arch. There is bilateral arteria l flow in the subclavian arteries. There is arterial flow in the common internal and external carotid arteries bilaterally. There is wid e patency of the carotid artery bifurcations. There is arterial flow in both vertebral arteries. There is arterial flow in the vertebrobasilar artery system. There is arterial flow in the anterior m iddle and posterior cerebral arteries. I see no evidence of hemodynamic stenosis. There is no mass ef fect. There is no sign of aneurysm or neovascularity. There is normal contrast opacification of the venous sinuses. IMPRESSION: Normal exam.
[2020-08-31 17:41] LABS: Partial Thromboplastin Time 22.3 sec (22.0-30.0); Prothrombin Time 10.3 sec (9.0-12.0)
[2020-08-31 17:50] VITALS: BP 119/68; PULSE 92; TEMP 98.1
== END 2020-08-31 17:55 | disposition home or self-care (01) ==
LOC: EC 15:49
DX: R51.9 Headache, unspecified (principal); R20.2 Paresthesia of skin
CPT/HCPCS: 36415; 93005; 80053; 84484; 85025; 85610; 85730; 71046; 70496; 70450; 70498; 99284; 96374; 96375 ×2; J1200; J2405; J1170; Q9967

== ENCOUNTER 2020-10-23 08:26 | Emergency (ER) | payer BC ==
[2020-10-23 08:33] VITALS: BP 137/91; PULSE 90; RESP 18; TEMP 97.8
[2020-10-23] MEDS ORDERED: KETOROLAC 15 MG/ML 1 ML VIAL IVP STA (08:55)
[2020-10-23] MEDS ORDERED: SODIUM CHLORIDE 0.9% 1,000 ML IV ONE (08:56)
[2020-10-23] MEDS ORDERED: diphenhydrAMINE 50 MG/ML 1 ML VIAL IVP STA (08:56)
[2020-10-23] MEDS ORDERED: METOCLOPRAMIDE 5 MG/ML 2 ML VIAL IVP STA (08:56)
--- NOTE | 2020-10-23 09:04 | ED ---
Headache HPI - General Chief Complaint: Headache Stated Complaint: Dizziness/nausea/headache Time Seen by Provider: 10/23/20 08:41 Source: patient, RN notes reviewed Mode of arrival: ambulatory Limitations: no limitations - History of Present Illness Initial Comments: This a 25-year-old female presents emergency Department chief complaint migraine headache. Patient's been having recurrent migraine headaches. Patient states this is a typical headache on the right side. She states that it started this morning if she came home from work. Patient states that she seen her primary physician has been seen in emergency departments had CT and CTA of her head. Patient states that they do resolve usually with oral medications but occasionally she needs IV medications. She missed some nausea and slight photophobia no focal weakness. Patient offers no other complaints. - Related Data Home Medications Medication Instructions Recorded Confirmed SUMAtriptan SUCCINATE [Imitrex] 50 mg PO DAILY PRN 05/21/20 08/31/20 Apri 1 tab PO DAILY 08/23/20 08/31/20 Ibuprofen [Children's Motrin Susp] 600 mg PO Q8H PRN 08/23/20 08/31/20 Topiramate [Topamax] 100 mg PO HS 08/23/20 08/31/20 Allergies Allergy/AdvReac Type Severity Reaction Status Date / Time No Known Allergies Allergy Verified 10/23/20 08:33 Review of Systems ROS Statement: Those systems with pertinent positive or pertinent negative responses have been documented in the HPI. ROS Other: All systems not noted in ROS Statement are negative. Past Medical History Additional Past Medical History / Comment(s): headache History of Any Multi-Drug Resistant Organisms: None Reported Past Surgical History: No Surgical Hx Reported Past Psychological History: No Psychological Hx Reported Smoking Status: Never smoker, Vaper Past Alcohol Use History: Rare Past Drug Use History: Marijuana General Exam Limitations: no limitations General appearance: alert, in no apparent distress Head exam: Present: atraumatic, normocephalic, normal inspection Eye exam: Present: normal appearance, PERRL, EOMI. Absent: scleral icterus, conjunctival injection, periorbital swelling ENT exam: Present: normal exam, normal oropharynx, mucous membranes moist Neck exam: Present: normal inspection, full ROM. Absent: tenderness, meningismus, lymphadenopathy Respiratory exam: Present: normal lung sounds bilaterally. Absent: respiratory distress, wheezes, rales, rhonchi, stridor Cardiovascular Exam: Present: regular rate, normal rhythm, normal heart sounds. Absent: systolic murmur, diastolic murmur, rubs, gallop, clicks Neurological exam: Present: alert, oriented X3, CN II-XII intact, normal gait, reflexes normal, other (Finger to nose intact bilaterally). Absent: motor sensory deficit Skin exam: Present: warm, dry, intact, normal color. Absent: rash Course Vital Signs 10/23/20 08:27 Temperature 97.8 F Pulse Rate 90 Respiratory 18 Rate Blood Pressure 137/91 O2 Sat by Pulse 97 Oximetry Medical Decision Making - Medical Decision Making This a 25-year-old female presents emergency department for headache. Patient was given migraine cocktail which has greatly improved states her headaches completely resolved. She has no neurological deficits. Patient we discharged stable condition. Disposition Clinical Impression: Migraine headache Disposition: HOME SELF-CARE Condition: Stable Instructions (If sedation given, give patient instructions): Acute Headache (ED) Additional Instructions: Please return to the Emergency Department if symptoms worsen or any other concerns. Is patient prescribed a controlled substance at d/c from ED?: No Referrals: Thai Simpson MD [Primary Care Provider] - 1-2 days Time of Disposition: 10:16
== END 2020-10-23 10:27 | disposition home or self-care (01) ==
LOC: EC 08:26
DX: G43.909 Migraine, unspecified, not intractable, without status migrainosus (principal)
CPT/HCPCS: 99283; 96374; 96375; 96361; J1200; J2765; J1885

== ENCOUNTER → 2020-11-18 | Day surgery (SDC) | payer BC ==
[2020-11-13 14:23] VITALS: BMI 41.1
[~2020-11-18] MED LIST: KETAMINE 10 MG/ML 20 ML VIAL ONE; LACTATED RINGERS 1,000 ML IV SCH; LIDOCAINE 1% (10MG/ML) FOR IV START INTRADERMA PRN; LIDOCAINE 1% INJ 10MG/ML (20 ML MDV) ONE; MIDAZOLAM 2 MG/2 ML VIAL ONE; PROPOFOL 10 MG/ML 20 ML VIAL IV ONE; fentaNYL (PF) 50 MCG/ML 2 ML AMP ONE
[2020-11-18 11:22] VITALS: TEMP 98.3
--- NOTE | 2020-11-18 13:03 | P.PCN ---
Date of Procedure: 11/18/20 Description of Procedure: BRIEF HISTORY: Patient is a 25-year-old female presenting for esophagogastric to due to endoscopy for evaluation of nausea and vomiting. Patient reports symptoms of nausea and vomiting currently somewhat improved. She also has symptoms of heartburn and acid regurgitation better on PPI therapy. PROCEDURE PERFORMED: Esophagogastroduodenoscopy with biopsy. PREOPERATIVE DIAGNOSIS: Nausea and vomiting, reflux. ESTIMATED BLOOD LOSS: Minimal. IV sedation per anesthesia. PROCEDURE: After informed consent was obtained, the patient was brought into the endoscopy unit. IV sedation was administered by Anesthesia under continuous monitoring. Initially the Olympus GIF-190 video endoscope was inserted into the mouth. Esophagus intubated without any difficulty. It was gradually advanced into the stomach and duodenum and carefully examined. The bulb and the second part of the duodenum appeared normal, with biopsies taken. The scope at this time was withdrawn to the stomach, adequately insufflated with air, and upon careful examination, mucosa of the antrum, body, cardia and the fundus appeared normal, except for some mild punctate erythema suggestive of mild gastritis biopsy taken. The scope was then withdrawn into the esophagus. The GE junction was located at 37 cm from the incisors. The esophagus appeared normal with biopsies taken of the midesophagus and lower esophagus. There were no erosions or ulcerations seen and the patient tolerated the procedure well. IMPRESSION: 1. Mild gastritis. 2. Biopsies of the duodenum, antrum and body, lower esophagus and mid esophagus. RECOMMENDATIONS: The findings of this examination were discussed with the patient and her family. Okay to resume diet. Okay to resume medication. Continue current medical management. Await pathology from biopsies.
[2020-11-18 13:06] VITALS: BP 126/82; PULSE 97; RESP 16
== END ==
LOC: ORWHC2ENDO 10:27
PROVIDERS: ATTEND Internal Medicine
DX: K29.50 Unspecified chronic gastritis without bleeding (principal); K21.00 Gastro-esophageal reflux disease with esophagitis, without bleeding; E66.01 Morbid (severe) obesity due to excess calories; Z68.41 Body mass index [BMI] 40.0-44.9, adult; Z79.899 Other long term (current) drug therapy
CPT/HCPCS: 81025; 88305; 43239; J2250; J2001; J3010; J2704

== ENCOUNTER 2021-04-22 23:46 | Emergency (ER) | payer OTHER, BC ==
[2021-04-22 23:56] VITALS: RESP 20; TEMP 98.4
[2021-04-23] MEDS ORDERED: KETOROLAC 15 MG/ML 1 ML VIAL IM STA (00:14)
[2021-04-23] MEDS ORDERED: LIDOCAINE 5% PATCH TOPICAL STA (00:14)
--- NOTE | 2021-04-23 00:55 | XR ---
EXAMINATION TYPE: XR lumbar spine 2 or 3V DATE OF EXAM: 04/23/2021 COMPARISON: NONE HISTORY: Injury. Back pain TECHNIQUE: 3 views FINDINGS: Lumbar vertebra have normal alignment. Disc spaces are fairly normal. Posterior elements ar e intact. There is no compression fracture. Sacroiliac joints are normal. IMPRESSION: Negative lumbar spine exam. No fracture.
--- NOTE | 2021-04-23 01:03 | ED ---
Back Pain HPI - General Chief Complaint: Back Pain/Injury Stated Complaint: Back Injury, [facility] Time Seen by Provider: 04/22/21 23:58 Source: patient Limitations: no limitations - History of Present Illness Initial Comments: 26-year-old female presents emergency Department with chief complaint of back pain. Patient reports while she was at work, she bent over and she began to fee l sudden pain in the lower lumbar region with radiation along the posterior aspect of her right lower extremity to the popliteal region. She reports that after she went home, she began to have increased pain and she had difficulty getting out of bed. Patient reports the pain is alleviated with supine position but exacerbated with sitting or standing. She denies any direct traumatic injury to her back. No prior history of back pain. Denies any saddle anesthesia, urinary retention with overflow or bowel incontinence. Denies taking medication at home to alleviate the symptoms. Denies abdominal pain. - Related Data Home Medications Medication Instructions Recorded Confirmed SUMAtriptan SUCCINATE [Imitrex] 50 mg PO DAILY PRN 05/21/20 11/13/20 Topiramate [Topamax] 100 mg PO HS 08/23/20 11/13/20 Ondansetron Odt [Zofran ODT] 4 mg PO DIRECTED PRN 11/13/20 11/13/20 Rimegepant Sulfate [Nurtec Odt] 75 mg PO DIRECTED PRN 11/13/20 11/13/20 Allergies Allergy/AdvReac Type Severity Reaction Status Date / Time No Known Allergies Allergy Verified 04/22/21 23:56 Review of Systems ROS Statement: Those systems with pertinent positive or pertinent negative responses have been documented in the HPI. ROS Other: All systems not noted in ROS Statement are negative. Past Medical History Additional Past Medical History / Comment(s): nausea, stomach pain, migraine headaches History of Any Multi-Drug Resistant Organisms: None Reported Past Surgical History: No Surgical Hx Reported Past Anesthesia/Blood Transfusion Reactions: No Reported Reaction Past Psychological History: No Psychological Hx Reported Smoking Status: Never smoker Past Alcohol Use History: None Reported Past Drug Use History: None Reported - Past Family History Mother Family Medical History: No Reported History General Exam Limitations: no limitations General appearance: alert, in no apparent distress, obese Head exam: Present: atraumatic, normocephalic, normal inspection Eye exam: Present: normal appearance, PERRL, EOMI Pupils: Present: normal accommodation ENT exam: Present: normal exam, normal oropharynx, mucous membranes moist Neck exam: Present: normal inspection, full ROM. Absent: tenderness, lymph adenopathy Respiratory exam: Present: normal lung sounds bilaterally. Absent: respiratory distress, wheezes, rales, rhonchi, stridor Cardiovascular Exam: Present: regular rate, normal rhythm, normal heart sounds. Absent: systolic murmur GI/Abdominal exam: Present: soft. Absent: distended, tenderness, guarding, rebound Extremities exam: Present: normal inspection, full ROM, normal capillary refill. Absent: tenderness Back exam: Present: normal inspection, full ROM, tenderness, paraspinal tenderness (Right-sided paraspinal tenderness), vertebral tenderness (Lumbosacral tenderness). Absent: CVA tenderness (R), CVA tenderness (L), muscle spasm Neurological exam: Present: alert, oriented X3 Psychiatric exam: Present: normal affect, normal mood Skin exam: Present: warm, dry, intact, normal color Course Vital Signs 04/22/21 23:50 Temperature 98.4 F Pulse Rate 93 Respiratory 20 Rate Blood Pressure 133/76 O2 Sat by Pulse 95 Oximetry Medical Decision Making - Medical Decision Making 26-year-old female presents emergency Department with chief complaint of back pain. On physical examination, lumbar tenderness along with tenderness along the posterior aspect of the right lower extremities. Positive leg raise test. X-ray of the lumbar spine is unremarkable. Patient likely sprinter lumbar radiculopathy. No concern for cauda equina at this time. Patient was given Toradol, Lidoderm patch and Dilaudid for pain. On reevaluation, she reports improvement in symptoms. Patient will be discharged with a Tylenol 3 starter pack. Advised to follow with health and safety specialist. Return parameters were thoroughly discussed the patient is understanding and agreeable. Disposition Clinical Impression: Lumbar radiculopathy, acute Disposition: HOME SELF-CARE Condition: Stable Instructions (If sedation given, give patient instructions): Acute Low Back Pain (ED), Lumbar Radiculopathy (ED), Lower Back Exercises (ED) Additional Instructions: Follow-up with an health and safety specialist. Return to emergency department if symptoms worsen. Is patient prescribed a controlled substance at d/c from ED?: No Referrals: Thai Simpson MD [Primary Care Provider] - 1-2 days Kyle Lucero DO [Doctor of Osteopathic Medicine] - 1-2 days Time of Disposition: 01:27
[2021-04-23] MEDS ORDERED: HYDROmorphone 1 MG/ML 1 ML SYRINGE IM STA (01:15)
[2021-04-23] MEDS ORDERED: ACET/COD 300 MG/30 MG STARTER PACK 6 TAB BTL PO STA (01:23)
[2021-04-23 01:45] VITALS: BP 157/91; PULSE 103
== END 2021-04-23 02:33 | disposition home or self-care (01) ==
LOC: EC 23:46
DX: M54.16 Radiculopathy, lumbar region (principal); G43.909 Migraine, unspecified, not intractable, without status migrainosus
CPT/HCPCS: 72100; 99283; 96372 ×2; J1170; J1885

== ENCOUNTER 2021-06-30 23:09 | Emergency (ER) | payer BC ==
[2021-06-30 23:14] VITALS: TEMP 98.9
[2021-07-01] MEDS ORDERED: SODIUM CHLORIDE 0.9% 1,000 ML IV STA (00:31)
[2021-07-01] MEDS ORDERED: ONDANSETRON 4 MG/2 ML VIAL IVP STA (00:32)
[2021-07-01 02:02] LABS: Basophils % (A) 0 %; Eosinophils # (A) 0.2 k/uL (0-0.7); Eosinophils % (A) 2 %; HCT 40.3 % (34.0-46.0); HGB 13.6 gm/dL (11.4-16.0); Lymphocytes # (A) 2.7 k/uL (1.0-4.8); Lymphocytes % (A) 28 %; MCH 27.2 pg (25.0-35.0); MCHC 33.8 g/dL (31.0-37.0); MCV 80.4 fL (80.0-100.0); Mean Platelet Volume 6.4; Monocytes # (A) 0.5 k/uL (0-1.0); Monocytes % (A) 5 %; Neutrophils # (A) 6.2 k/uL (1.3-7.7); Neutrophils % (A) 63 %; Platelet Count 286 k/uL (150-450); Poikilocytosis Slight; RBC 5.02 m/uL (3.80-5.40); WBC 9.7 k/uL (3.8-10.6)
[2021-07-01 02:07] LABS: Appearance,Urine Clear (Clear); Bacteria,Urine Rare /hpf; Bilirubin,Urine Negative (Negative); Blood,Urine Negative (Negative); Color,Urine Yellow; Glucose,Urine (UA) Negative (Negative); Ketones,Urine Negative (Negative); Leukocyte Esterase,Urine Trace (Negative); Mucus,Urine Rare /hpf; Nitrite,Urine Negative (Negative); Protein,Urine Negative (Negative); Specific Gravity,Urine 1.026 (1.001-1.035); Squamous Epithelial Cell,Urine 2 /hpf (0-4); Urobilinogen,Urine <2.0 mg/dL (<2.0); WBC,Urine 2 /hpf (0-5)
--- NOTE | 2021-07-01 02:10 | XR ---
EXAMINATION TYPE: XR KUB DATE OF EXAM: 07/01/2021 COMPARISON: NONE HISTORY: Abdominal pain TECHNIQUE: 2 views upright FINDINGS: There is no sign of intestinal obstruction or pneumoperitoneum. Fecal pattern is normal. Th ere is no evidence of a mass. IMPRESSION: Nonacute abdomen.
[2021-07-01 02:13] LABS: ALT 18 U/L (4-34); AST 18 U/L (14-36); African American GFR (CKD) >90 (>60 ml/min/1.73 sqM); Albumin 3.8 g/dL (3.5-5.0); Alkaline Phosphatase 86 U/L (38-126); Anion Gap 7 mmol/L; Blood Urea Nitrogen 11 mg/dL (7-17); Carbon Dioxide 24 mmol/L (22-30); Chloride 107 mmol/L (98-107); Glucose 110 mg/dL (74-99); Lipase 64 U/L (23-300); Non-African American GFR(CKD) >90 (>60 ml/min/1.73 sqM); Potassium 4.1 mmol/L (3.5-5.1); Sodium 138 mmol/L (137-145); Total Bilirubin 0.2 mg/dL (0.2-1.3); Total Protein 6.6 g/dL (6.3-8.2)
--- NOTE | 2021-07-01 02:45 | ED ---
Nausea/Vomiting/Diarrhea HPI - General Chief complaint: Nausea/Vomiting/Diarrhea Stated complaint: vomiting, dizziness Time Seen by Provider: 07/01/21 00:05 Source: patient Mode of arrival: ambulatory Limitations: no limitations - History of Present Illness Initial comments: 26-year-old female patient presents to the emergency department today for evalua tion of vomiting and dizziness. States this started earlier today she's been having alternating constipation diarrhea and several episodes of vomiting. Denies any hematochezia, melena, hematemesis. States that she has been having a lot of nausea and vomiting while eating over the last few weeks. States that she's also been having heavy periods which is unusual for her. Denies any new medications. States that she does regularly follow with her primary care physician. Denies any chance of . Denies fever or chills. Denies any cough or congestion. - Related Data Home Medications Medication Instructions Recorded Confirmed SUMAtriptan SUCCINATE [Imitrex] 50 mg PO DAILY PRN 05/21/20 11/13/20 Topiramate [Topamax] 100 mg PO HS 08/23/20 11/13/20 Ondansetron Odt [Zofran ODT] 4 mg PO DIRECTED PRN 11/13/20 11/13/20 Rimegepant Sulfate [Nurtec Odt] 75 mg PO DIRECTED PRN 11/13/20 11/13/20 Previous Rx's Medication Instructions Recorded Ondansetron [Zofran ODT] 4 mg PO Q8HR PRN #10 tab 07/01/21 Allergies Allergy/AdvReac Type Severity Reaction Status Date / Time No Known Allergies Allergy Verified 06/30/21 23:11 Review of Systems ROS Statement: Those systems with pertinent positive or pertinent negative responses have been documented in the HPI. ROS Other: All systems not noted in ROS Statement are negative. Past Medical History Past Medical History: No Reported History Additional Past Medical History / Comment(s): nausea, stomach pain, migraine headaches History of Any Multi-Drug Resistant Organisms: None Reported Past Surgical History: No Surgical Hx Reported Past Anesthesia/Blood Transfusion Reactions: No Reported Reaction Past Psychological History: Anxiety Smoking Status: Never smoker Past Alcohol Use History: Occasional Past Drug Use History: Marijuana - Past Family History Mother Family Medical History: No Reported History General Exam Limitations: no limitations General appearance: alert, in no apparent distress, other (This is a well- developed, well-nourished adult female in no acute distress.) ENT exam: Present: normal exam, normal oropharynx, mucous membranes moist Respiratory exam: Present: normal lung sounds bilaterally. Absent: respiratory distress, wheezes, rales, rhonchi, stridor Cardiovascular Exam: Present: regular rate, normal rhythm, normal heart sounds. Absent: systolic murmur, diastolic murmur, rubs, gallop, clicks GI/Abdominal exam: Present: soft, normal bowel sounds. Absent: distended, tenderness, guarding, rebound, rigid Neurological exam: Present: alert, oriented X3, CN II-XII intact Psychiatric exam: Present: normal affect, normal mood Skin exam: Present: warm, dry, intact, normal color. Absent: rash Course Vital Signs 06/30/21 23:11 Temperature 98.9 F Pulse Rate 97 Respiratory 20 Rate Blood Pressure 156/77 O2 Sat by Pulse 98 Oximetry Medical Decision Making - Medical Decision Making 26-year-old female patient presents for evaluation of vomiting and dizziness. Physical examination is unremarkable. Abdomen is soft and nontender. She is neurologically intact with no focal deficits. Labs reviewed and are unremarkable. Urinalysis negative for infection and . KUB was obtained and was negative. I did discuss findings and results with her. She'll be discharged. Her primary care physician for recheck in 1-2 days. She is urged to discuss HIDA scan. She is given Zofran prescription. She is instructed guarding return parameters. She verbalizes understanding and agrees with this plan. My attending is Dr. Hamm. - Lab Data Result diagrams: 07/01/21 01:49 07/01/21 01:49 Lab Results 06/30/21 07/01/21 07/01/21 Range/Units 23:15 01:49 01:49 WBC 9.7 (3.8-10.6) k/uL RBC 5.02 (3.80-5.40) m/uL Hgb 13.6 (11.4-16.0) gm/dL Hct 40.3 (34.0-46.0) % MCV 80.4 (80.0-100.0) fL MCH 27.2 (25.0-35.0) pg MCHC 33.8 (31.0-37.0) g/dL RDW 15.0 (11.5-15.5) % Plt Count 286 (150-450) k/uL MPV 6.4 Neutrophils % 63 % Lymphocytes % 28 % Monocytes % 5 % Eosinophils % 2 % Basophils % 0 % Neutrophils # 6.2 (1.3-7.7) k/uL Lymphocytes # 2.7 (1.0-4.8) k/uL Monocytes # 0.5 (0-1.0) k/uL Eosinophils # 0.2 (0-0.7) k/uL Basophils # 0.0 (0-0.2) k/uL Poikilocytosis Slight Sodium (137-145) mmol/L Potassium (3.5-5.1) mmol/L Chloride (98-107) mmol/L Carbon Dioxide (22-30) mmol/L Anion Gap mmol/L BUN (7-17) mg/dL Creatinine (0.52-1.04) mg/dL Est GFR (CKD-EPI)AfAm (>60 ml/min/1.73 sqM) Est GFR (CKD-EPI)NonAf (>60 ml/min/1.73 sqM) Glucose (74-99) mg/dL Calcium (8.4-10.2) mg/dL Total Bilirubin (0.2-1.3) mg/dL AST (14-36) U/L ALT (4-34) U/L Alkaline Phosphatase (38-126) U/L Total Protein (6.3-8.2) g/dL Albumin (3.5-5.0) g/dL Lipase (23-300) U/L TSH (0.465-4.680) mIU/L Urine Color Yellow Urine Appearance Clear (Clear) Urine pH 6.0 (5.0-8.0) Ur Specific [place] 1.026 (1.001-1.035) Urine Protein Negative (Negative) Urine Glucose (UA) Negative (Negative) Urine Ketones Negative (Negative) Urine Blood Negative (Negative) Urine Nitrite Negative (Negative) Urine Bilirubin Negative (Negative) Urine Urobilinogen <2.0 (<2.0) mg/dL Ur Leukocyte Esterase Trace H (Negative) Urine WBC 2 (0-5) /hpf Ur Squamous Epith Cells 2 (0-4) /hpf Urine Bacteria Rare H (None) /hpf Urine Mucus Rare H (None) /hpf Urine HCG, Qual (Not Detectd) Coronavirus (PCR) Not Detected (Not Detectd) 07/01/21 07/01/21 Range/Units 01:49 01:49 WBC (3.8-10.6) k/uL RBC (3.80-5.40) m/uL Hgb (11.4-16.0) gm/dL Hct (34.0-46.0) % MCV (80.0-100.0) fL MCH (25.0-35.0) pg MCHC (31.0-37.0) g/dL RDW (11.5-15.5) % Plt Count (150-450) k/uL MPV Neutrophils % % Lymphocytes % % Monocytes % % Eosinophils % % Basophils % % Neutrophils # (1.3-7.7) k/uL Lymphocytes # (1.0-4.8) k/uL Monocytes # (0-1.0) k/uL Eosinophils # (0-0.7) k/uL Basophils # (0-0.2) k/uL Poikilocytosis Sodium 138 (137-145) mmol/L Potassium 4.1 (3.5-5.1) mmol/L Chloride 107 (98-107) mmol/L Carbon Dioxide 24 (22-30) mmol/L Anion Gap 7 mmol/L BUN 11 (7-17) mg/dL Creatinine 0.62 (0.52-1.04) mg/dL Est GFR (CKD-EPI)AfAm >90 (>60 ml/min/1.73 sqM) Est GFR (CKD-EPI)NonAf >90 (>60 ml/min/1.73 sqM) Glucose 110 H (74-99) mg/dL Calcium 9.0 (8.4-10.2) mg/dL Total Bilirubin 0.2 (0.2-1.3) mg/dL AST 18 (14-36) U/L ALT 18 (4-34) U/L Alkaline Phosphatase 86 (38-126) U/L Total Protein 6.6 (6.3-8.2) g/dL Albumin 3.8 (3.5-5.0) g/dL Lipase 64 (23-300) U/L TSH 3.470 (0.465-4.680) mIU/L Urine Color Urine Appearance (Clear) Urine pH (5.0-8.0) Ur Specific [place] (1.001-1.035) Urine Protein (Negative) Urine Glucose (UA) (Negative) Urine Ketones (Negative) Urine Blood (Negative) Urine Nitrite (Negative) Urine Bilirubin (Negative) Urine Urobilinogen (<2.0) mg/dL Ur Leukocyte Esterase (Negative) Urine WBC (0-5) /hpf Ur Squamous Epith Cells (0-4) /hpf Urine Bacteria (None) /hpf Urine Mucus (None) /hpf Urine HCG, Qual Not Detected (Not Detectd) Coronavirus (PCR) (Not Detectd) - Radiology Data Radiology results: report reviewed, image reviewed 2 views of the abdomen are obtained. Report was reviewed in its entirety. Impression by Dr. Meng shows nonacute abdomen. Disposition Clinical Impression: Vomiting, Dizziness Disposition: HOME SELF-CARE Condition: Good Instructions (If sedation given, give patient instructions): Acute Nausea and Vomiting (ED), Dizziness (ED) Additional Instructions: Take medication as directed. Follow-up with your primary care physician for recheck in 1-2 days. Discussed possible HIDA scan for further evaluation of your symptoms. Return to the emergency department for any new, worsening, or concerning symptoms. Prescriptions: Ondansetron [Zofran ODT] 4 mg PO Q8HR PRN #10 tab PRN Reason: Nausea Is patient prescribed a controlled substance at d/c from ED?: No Referrals: Thai Simpson MD [Primary Care Provider] - 1-2 days Time of Disposition: 02:45
[2021-07-01 03:09] VITALS: BP 122/62; PULSE 68; RESP 16
== END 2021-07-01 03:12 | disposition home or self-care (01) ==
LOC: EC 23:09
DX: R42 Dizziness and giddiness (principal); R11.2 Nausea with vomiting, unspecified; Z20.822 Contact with and (suspected) exposure to COVID-19; F41.9 Anxiety disorder, unspecified; F12.90 Cannabis use, unspecified, uncomplicated; Z79.899 Other long term (current) drug therapy
CPT/HCPCS: 36415; 80053; 84443; 83690; 85025; 81001; 81025; 87635; 74018; 99284; 96374; J2405

== ENCOUNTER → 2021-07-16 | Outpatient (CLI) | payer BC ==
--- NOTE | 2021-07-16 17:47 | NM ---
EXAMINATION TYPE: NM hepatobiliary w EF DATE OF EXAM: 07/16/2021 COMPARISON: NONE HISTORY: 26-year-old female R10.11 RUQ Abd pain, R11.2 nausea/vomiting TECHNIQUE: After the intravenous administration of 5.1 mCi Tc 99m Mebrofenin hepatobiliary scintigrap hy is performed. Immediate images post injection. FINDINGS: There is satisfactory initial accumulation of tracer by the liver. The gallbladder is visualized wit hin 20 minutes. The small bowel activity is noted within 6 minutes. At one hour 8 ounces of oral en sure plus is given to mimic CCK and gallbladder ejection fraction is calculated at 97 %, elevated abo ve the expected range. IMPRESSION: 1. No scintigraphic evidence for acute/chronic cholecystitis or biliary dyskinesia. 2. Markedly elevated gallbladder ejection fraction of 97%. This may be seen in the setting of gallbla dder hyperkinesis.
== END | disposition home or self-care (01) ==
LOC: RADNMMAIN 13:00
PROVIDERS: ATTEND Family Medicine
DX: R10.11 Right upper quadrant pain (principal); R11.2 Nausea with vomiting, unspecified
CPT/HCPCS: 78226; A9537

== ENCOUNTER 2021-09-28 12:46 | Day surgery (SDC) | payer BC ==
[2021-09-24 12:17] VITALS: BMI 40.7
[~2021-09-28 12:46] MED LIST changes: -KETAMINE 10 MG/ML 20 ML VIAL ONE; -LIDOCAINE 1% INJ 10MG/ML (20 ML MDV) ONE; -MIDAZOLAM 2 MG/2 ML VIAL ONE; -PROPOFOL 10 MG/ML 20 ML VIAL IV ONE; -fentaNYL (PF) 50 MCG/ML 2 ML AMP ONE
[2021-09-28 13:49] VITALS: TEMP 98
[2021-09-28] MEDS ORDERED: MIDAZOLAM 2 MG/2 ML VIAL ONE (13:55)
[2021-09-28] MEDS ORDERED: fentaNYL (PF) 50 MCG/ML 2 ML AMP ONE (13:55)
[2021-09-28] MEDS ORDERED: PROPOFOL 10 MG/ML 20 ML VIAL IV ONE (13:55)
[2021-09-28] MEDS ORDERED: LIDOCAINE 1% INJ 10MG/ML (20 ML MDV) ONE (13:55)
--- NOTE | 2021-09-28 14:00 | P.GSHP ---
History of Present Illness H&P Date: 09/28/21 Chief Complaint: GERD This a 26-year-old female with history of GERD. Patient rents today for EGD. Past Medical History Past Medical History: No Reported History Additional Past Medical History / Comment(s): migraine headaches. History of Any Multi-Drug Resistant Organisms: None Reported Past Surgical History: Cholecystectomy Additional Past Surgical History / Comment(s): [place] teeth extracted. Past Anesthesia/Blood Transfusion Reactions: No Reported Reaction Smoking Status: Never smoker - Past Family History Mother Family Medical History: No Reported History Father Family Medical History: Deep Vein Thrombosis (DVT) Medications and Allergies Home Medications Medication Instructions Recorded Confirmed Type SUMAtriptan SUCCINATE [Imitrex] 50 mg PO DAILY PRN 05/21/20 09/24/21 History Topiramate [Topamax] 100 mg PO DAILY 08/23/20 09/24/21 History Rimegepant Sulfate [Nurtec Odt] 75 mg PO Q48H 11/13/20 09/24/21 History Ondansetron [Zofran] 4 mg SL Q8HR PRN 07/31/21 09/24/21 History tiZANidine [Zanaflex] 4 mg PO BID 07/31/21 09/24/21 History Ibuprofen [Motrin] 600 mg PO Q6HR PRN #40 tab 08/07/21 09/24/21 Rx oxyCODONE HCL [OxyIR] 5 mg PO Q6H PRN 3 Days #10 tab 08/07/21 09/24/21 Rx Allergies Allergy/AdvReac Type Severity Reaction Status Date / Time No Known Allergies Allergy Verified 09/24/21 12:08 Surgical - Exam Vital Signs Temp Pulse Resp BP Pulse Ox 98.0 F 103 H 16 139/65 96 09/28/21 13:40 09/28/21 13:40 09/28/21 13:40 09/28/21 13:40 09/28/21 13:40 BMI 43 - General well developed, well nourished, no distress - Eyes PERRL - ENT normal pinna - Neck no masses - Respiratory normal expansion - Cardiovascular Rhythm: regular - Abdomen Abdomen: soft, non tender Assessment and Plan Assessment: GERD. We'll perform EGD.
--- NOTE | 2021-09-28 14:07 | P.OP ---
Date of Procedure: 09/28/21 Preoperative Diagnosis: GERD Postoperative Diagnosis: Gastritis Morbid obesity, BMI 43 Procedure(s) Performed: EGD Anesthesia: MAC Surgeon: Suraj Beltran Pathology: other (Antrum) Condition: stable Disposition: PACU Description of Procedure: The patient's placed on the endoscopy table in the lateral position. She received IV sedation. The gastroscope placed oropharynx passed in the esophagus and the stomach. Scope was placed through the pylorus. The first and second portion of the duodenum appeared normal. Scope summer back the antrum there is minimal inflation. Biopsies performed. Scope was unretroflexed and remainder the stomach appeared normal. The GE junction was at 40 cm. There was no significant hiatal hernia. The distal esophagus appeared normal. The proximal esophagus. Normal. Scope withdrawn for patient.
[2021-09-28] MEDS ORDERED: ONDANSETRON 4 MG/2 ML VIAL ONE (14:13)
[2021-09-28] MEDS ORDERED: ONDANSETRON 4 MG/2 ML VIAL IVP ONE (14:15)
[2021-09-28 14:37] VITALS: BP 130/79; PULSE 89; RESP 14
== END 2021-09-28 15:24 | disposition home or self-care (01) ==
LOC: ORWHC2ENDO 12:46
PROVIDERS: ATTEND Surgery
DX: K29.70 Gastritis, unspecified, without bleeding (principal); E66.01 Morbid (severe) obesity due to excess calories; Z68.41 Body mass index [BMI] 40.0-44.9, adult; F41.9 Anxiety disorder, unspecified; G43.909 Migraine, unspecified, not intractable, without status migrainosus; K21.9 Gastro-esophageal reflux disease without esophagitis
CPT/HCPCS: 43239; 81025; 88305; J2250; J2405; J2001; J3010; J2704

== ENCOUNTER → 2021-11-09 | Outpatient (CLI) | payer BC ==
[2021-11-09 14:48] VITALS: BP 136/88; PULSE 88; RESP 16; TEMP 97.9; BMI 44.7
[2021-11-09 22:39] LABS: HCT 43.4 % (37.2-46.3); MCH 26.7 pg (27.0-32.0); MCHC 32.3 g/dL (32.0-37.0); MCV 82.8 fL (80.0-97.0); NRBC Per 100 WBC 0 /100 WBCS (0.0-0.0); Platelet Count 299 X 10*3/uL (140-440); RBC 5.24 X 10*6/uL (4.10-5.20); RDW 14.1 % (11.5-14.5)
[2021-11-09 23:21] LABS: ALT 17 U/L (8-44); AST 15 U/L (13-35); African American GFR (CKD) 141.4 (60.0-200.0); Albumin 3.9 g/dL (3.8-4.9); Albumin/Globulin Ratio 1.71 (1.60-3.17); Alkaline Phosphatase 78 U/L (41-126); BUN/Creat Ratio 10.06 Ratio (12.00-20.00); Blood Urea Nitrogen 6.9 mg/dL (9.0-27.0); Carbon Dioxide 22.5 mmol/L (20.0-27.5); Chloride 107 mmol/L (96-109); Globulin 2.3 g/dL (1.6-3.3); Glucose 93 mg/dL (70-110); Potassium 3.8 mmol/L (3.5-5.5); Sodium 141 mmol/L (135-145); Total Bilirubin <0.15 mg/dL (0.30-1.20); Total Protein 6.2 g/dL (6.2-8.2)
--- NOTE | 2022-02-05 11:09 | P.HPBAR ---
Bariatric H&P - History & Physicial H&P Date: 11/09/21 History & Physicial: Visit/CC: new patient Patient initial contact: Initial weight: 123.831 kg Initial weight in pounds: 273.00 Height: 5 ft 5.5 in Initial BMI: 44.7 Last weight: Current weight: 123.831 kg Current weight in pounds: 273.00 Current BMI: 44.7 [place] body weight (based on NIH guidelines): 57.833 kg Excess body weight loss: 0.0% The patient is a 26 year-old F who presents for Bariatric Assessment. Patient presents today for presurgical consultation. She is morbidly obese. Her BMI is 45. Past Medical History Past Medical History: No Reported History Additional Past Medical History / Comment(s): migraine headaches. History of Any Multi-Drug Resistant Organisms: None Reported Past Surgical History: Cholecystectomy Additional Past Surgical History / Comment(s): [place] teeth extracted. Past Anesthesia/Blood Transfusion Reactions: No Reported Reaction Past Psychological History: Anxiety Smoking Status: Never smoker Past Alcohol Use History: Occasional Past Drug Use History: Marijuana Additional Drug Use History / Comment(s): Marijuana use occasionally. Instructed to hold 24 hrs prior to procedure. - Past Family History Mother Family Medical History: No Reported History Father Family Medical History: Deep Vein Thrombosis (DVT) Surgical - Exam Vital Signs Temp Pulse Resp BP 97.9 F 88 16 136/88 11/09/21 14:43 11/09/21 14:43 11/09/21 14:43 11/09/21 14:43 - General well developed, well nourished, no distress - Eyes PERRL - ENT normal pinna - Neck no masses - Respiratory normal expansion - Cardiovascular Rhythm: regular - Abdomen Abdomen: soft, non tender Results - Labs 11/09/21 16:08 11/09/21 16:08 Bariatric Assessment & Plan Plan: Morbid obesity. Patient be scheduled for EGD. Bariatric Checklist Checklist: Plan: Checklist: EGD: 1. Hiatal hernia: 2. H. Pylori: HgbA1c: Vitamin D: Smoking: Primary care physician referral: [facility] Psychiatry clearance: Cardiology clearance: Sleep study: Diet journal: VTE risk score: VTE risk level: Rehab needs at discharge:
== END ==
LOC: BARWHC3 14:09
PROVIDERS: ATTEND Surgery
DX: E66.01 Morbid (severe) obesity due to excess calories (principal); E55.9 Vitamin D deficiency, unspecified; Z01.818 Encounter for other preprocedural examination; G43.909 Migraine, unspecified, not intractable, without status migrainosus; Z68.42 Body mass index [BMI] 45.0-49.9, adult; F41.9 Anxiety disorder, unspecified
CPT/HCPCS: 80053; 82306; 82607; 83036; 84425; 85027; 93005; 99203; 99211

== ENCOUNTER → 2021-12-14 | Outpatient (CLI) | payer BC ==
[2021-12-14 11:02] VITALS: BMI 46.0
== END ==
LOC: BARWHC3 08:42
PROVIDERS: ATTEND Surgery
DX: E66.01 Morbid (severe) obesity due to excess calories (principal); Z71.3 Dietary counseling and surveillance; Z68.42 Body mass index [BMI] 45.0-49.9, adult
CPT/HCPCS: 97804

== ENCOUNTER → 2022-01-04 | Outpatient (CLI) | payer BC ==
[2022-01-04 22:20] LABS: Basophils # (A) 0.02 X 10*3/uL (0.00-0.10); Basophils % (A) 0.3 %; Eosinophils # (A) 0.08 X 10*3/uL (0.04-0.35); Eosinophils % (A) 1.1 %; HCT 41.1 % (37.2-46.3); HGB 13.3 g/dL (12.0-15.0); Immature Grans, Automated 0.1 %; Lymphocytes % (A) 28.4 %; MCH 26.3 pg (27.0-32.0); MCHC 32.4 g/dL (32.0-37.0); MCV 81.2 fL (80.0-97.0); Monocytes # (A) 0.63 X 10*3/uL (0.20-1.00); Monocytes % (A) 8.5 %; NRBC Per 100 WBC 0 /100 WBCS (0.0-0.0); Neutrophils # (A) 4.56 X 10*3/uL (1.80-7.70); Neutrophils % (A) 61.6 %; Platelet Count 290 X 10*3/uL (140-440); RBC 5.06 X 10*6/uL (4.10-5.20); RDW 13.8 % (11.5-14.5)
[2022-01-04 23:09] LABS: African American GFR (CKD) 140.6 (60.0-200.0); Albumin 4.2 g/dL (3.8-4.9); Albumin/Globulin Ratio 1.83 (1.60-3.17); Anion Gap 10.7 mmol/L (10.00-18.00); Blood Urea Nitrogen 9.1 mg/dL (9.0-27.0); Calcium 9.1 mg/dL (8.7-10.3); Carbon Dioxide 24.3 mmol/L (20.0-27.5); Globulin 2.3 g/dL (1.6-3.3); Non-African American GFR(CKD) 121.3 (60.0-200.0); Potassium 4.1 mmol/L (3.5-5.5); Total Bilirubin 0.2 mg/dL (0.30-1.20); Total Protein 6.5 g/dL (6.2-8.2)
== END | disposition home or self-care (01) ==
LOC: LABPAT 15:42
PROVIDERS: ATTEND Surgery
DX: Z01.812 Encounter for preprocedural laboratory examination (principal)
CPT/HCPCS: 80053; 85025

== ENCOUNTER → 2022-01-04 | Outpatient (CLI) | payer BC ==
[2022-01-04 15:24] VITALS: BP 134/86; PULSE 70; TEMP 98.5; BMI 43.7
--- NOTE | 2022-01-04 16:03 | P.HPBAR ---
Bariatric H&P - History & Physicial H&P Date: 01/04/22 History & Physicial: Visit/CC: pre-surgical Patient initial contact: Initial weight: 123.831 kg Initial weight in pounds: 273.00 Height: 5 ft 5.5 in Initial BMI: 44.7 Last weight: Current weight: 121.109 kg Current weight in pounds: 267.00 Current BMI: 43.7 [place] body weight (based on NIH guidelines): 57.833 kg Excess body weight loss: 4.1% The patient is a 26 year-old F who presents for Bariatric Assessment. Patient resents today for bariatric follow-up. Patient morbidly obese. She is scheduled for sleeve gastrectomy next week. Her BMI is 44. ALL questions were answered in the office today. Past Medical History Past Medical History: No Reported History Additional Past Medical History / Comment(s): migraine headaches. History of Any Multi-Drug Resistant Organisms: None Reported Past Surgical History: Cholecystectomy Additional Past Surgical History / Comment(s): [place] teeth extracted. Past Anesthesia/Blood Transfusion Reactions: No Reported Reaction Past Psychological History: Anxiety Smoking Status: Never smoker Past Alcohol Use History: Occasional Past Drug Use History: Marijuana Additional Drug Use History / Comment(s): Marijuana use occasionally. Instructed to hold 24 hrs prior to procedure. - Past Family History Mother Family Medical History: No Reported History Father Family Medical History: Deep Vein Thrombosis (DVT) Surgical - Exam Vital Signs Temp Pulse BP 98.5 F 70 134/86 01/04/22 15:21 01/04/22 15:21 01/04/22 15:21 - General well developed, well nourished, no distress - Eyes PERRL - ENT normal pinna, normal nares - Abdomen Abdomen: soft, non tender Bariatric Assessment & Plan Plan: Morbid obesity. BMI 44 We'll perform sleeve gastrectomy next week. Bariatric Checklist Checklist: Plan: Checklist: EGD: 1. Hiatal hernia: 2. H. Pylori: HgbA1c: Vitamin D: Smoking: Primary care physician referral: [facility] Psychiatry clearance: Cardiology clearance: Sleep study: Diet journal: VTE risk score: VTE risk level: Rehab needs at discharge:
== END ==
LOC: BARWHC3 14:46
PROVIDERS: ATTEND Surgery
DX: E66.01 Morbid (severe) obesity due to excess calories (principal); Z68.41 Body mass index [BMI] 40.0-44.9, adult; G43.909 Migraine, unspecified, not intractable, without status migrainosus; F41.9 Anxiety disorder, unspecified
CPT/HCPCS: 99211

== ENCOUNTER 2022-01-11 06:58 | Inpatient (IN) | payer BC ==
[~2022-01-11 06:58] MED LIST changes: +DEXAMETHASONE SOD PHOSPHATE 4 MG/ML 1 ML VIAL IV ONE; +ENOXAPARIN 40 MG/0.4 ML SYRINGE SQ PRN; -LACTATED RINGERS 1,000 ML IV SCH; -LIDOCAINE 1% (10MG/ML) FOR IV START INTRADERMA PRN; +ceFAZolin 3 GM in SODIUM CHLORIDE 0.9% 100 ML IVPB PRN
[2022-01-11] MEDS: LACTATED RINGERS 1,000 ML IV SCH (07:30)
[2022-01-11] MEDS: ONDANSETRON 4 MG/2 ML VIAL IVP ONE ×2 (07:42→09:22)
[2022-01-11] MEDS ORDERED: SCOPOLAMINE 1 MG/72 HR PATCH TRANSDERM ONE (07:42)
[2022-01-11] MEDS ORDERED: NEOSTIGMINE 1 MG/ML 10 ML VIAL ONE (07:51)
[2022-01-11] MEDS ORDERED: LIDOCAINE 2% INJ 20 MG/ML (2 ML VIAL) ONE (07:51)
[2022-01-11] MEDS ORDERED: GLYCOPYRROLATE 0.2 MG/ML 2 ML VIAL ONE (07:51)
[2022-01-11] MEDS ORDERED: MIDAZOLAM 2 MG/2 ML VIAL ONE (07:51)
[2022-01-11] MEDS ORDERED: HYDROmorphone (PF) 1 MG/ML ONE (07:51)
[2022-01-11] MEDS ORDERED: SUCCINYLCHOLINE CHLORIDE VIAL 200 MG/10 ML VIAL IV ONE (07:51)
[2022-01-11] MEDS ORDERED: ROCURONIUM 10 MG/ML (5 ML VIAL) IV ONE (07:51)
[2022-01-11] MEDS ORDERED: PROPOFOL 10 MG/ML 20 ML VIAL IV ONE (07:51)
[2022-01-11] MEDS ORDERED: fentaNYL (PF) 50 MCG/ML 2 ML AMP ONE (07:51)
[2022-01-11] MEDS ORDERED: BUPIVACAIN-EPI 0.25%-1:200,000 30 ML VIAL SQ ONE (08:16)
--- NOTE | 2022-01-11 09:05 | P.GSHP ---
History of Present Illness H&P Date: 01/11/22 Chief Complaint: Morbid obesity, BMI 40 This a 26-year-old female who presents today for laparoscopic sleeve gastrectomy. Patient's had issues with morbid obesity. Her BMI is 40. Patient extensive risks and benefits of procedure including conversion to the open procedure and injury to the stomach liver or spleen. Past Medical History Past Medical History: Neurologic Disorder Additional Past Medical History / Comment(s): migraine headaches. History of Any Multi-Drug Resistant Organisms: None Reported Past Surgical History: Cholecystectomy Additional Past Surgical History / Comment(s): [place] teeth extracted., EGD Past Anesthesia/Blood Transfusion Reactions: No Reported Reaction Smoking Status: Never smoker - Past Family History Mother Family Medical History: No Reported History Father Family Medical History: Deep Vein Thrombosis (DVT) Medications and Allergies Home Medications Medication Instructions Recorded Confirmed Type SUMAtriptan SUCCINATE [Imitrex] 50 mg PO DAILY PRN 05/21/20 01/07/22 History Rimegepant Sulfate [Nurtec Odt] 75 mg PO Q48H PRN 11/13/20 01/07/22 History Ondansetron [Zofran] 4 mg SL Q8HR PRN 07/31/21 01/07/22 History tiZANidine [Zanaflex] 4 mg PO BID 07/31/21 01/07/22 History Allergies Allergy/AdvReac Type Severity Reaction Status Date / Time No Known Allergies Allergy Verified 01/07/22 13:18 Surgical - Exam Vital Signs Temp Pulse Resp BP Pulse Ox 98.5 F 96 20 153/70 100 01/11/22 07:27 01/11/22 07:27 01/11/22 07:27 01/11/22 07:27 01/11/22 07:27 - General well developed, well nourished, no distress - Eyes PERRL - ENT normal pinna - Neck no masses - Respiratory normal expansion - Cardiovascular Rhythm: regular - Abdomen Abdomen: soft, non tender Assessment and Plan Assessment: Morbid obesity. We'll perform laparoscopic sleeve gastrectomy.
[2022-01-11] MEDS ORDERED: diphenhydrAMINE 50 MG/ML 1 ML VIAL IVP PRN (09:07)
[2022-01-11] MEDS ORDERED: SIMETHICONE 40 MG/0.6 ML DROPS 2,000 MG/30 ML BOTTLE PO PRN (09:07)
[2022-01-11] MEDS ORDERED: HYOSCYAMINE ORAL DROPS 1.875 MG/15 ML BOTTLE PO PRN (09:07)
[2022-01-11] MEDS ORDERED: NALOXONE 0.4 MG/ML 1 ML VIAL IV PRN (09:07)
--- NOTE | 2022-01-11 09:07 | P.OP ---
Date of Procedure: 01/11/22 Preoperative Diagnosis: Morbid obesity, BMI 40 Postoperative Diagnosis: Morbid obesity, BMI 40 Procedure(s) Performed: Laparoscopic sleeve gastrectomy Anesthesia: KEVIN Surgeon: Suraj Beltran Estimated Blood Loss (ml): 5 Pathology: other (Stomach) Condition: stable Disposition: PACU Description of Procedure: The patient was placed on the operating room table in the supine position. She received general anesthesia and then was placed in dorsal lithotomy position. Her abdomen was prepped and draped in sterile fashion. The skin incision sites were anesthetized 1% local Xylocaine. And then the skin was incised with an 11 blade in the left lateral position. Using a blade less trocar under direct visualization the peritoneal cavity was entered. The abdomen was insufflated and then a 5 mm laparoscope was placed into the peritoneal cavity. A 5 mm trocar was placed in the right epigastric, and right lateral position. A 15 mm trocar was placed in the supra-umbilical position and another 5 mm trocar was placed in the left lateral position. The left lateral lobe of the liver was retracted. The stomach was visualized. The greater curvature of the stomach was then dissected using the Harmonic scissors. The dissection occurred approximately 5 cm from the pylorus to the level of the left tiffanie. There was no hiatal hernia seen. At this point a 40-[place] bougie dilator was placed the oropharynx and passed into the esophagus and into the stomach by the LUBE MAN. The sleeve gastrectomy was performed by using the powered echelon stapler with a seam guard buttress material. Sequential firings of the stapler were performed. The gastric remnant was then brought out through the 15 mm trocar site. The dilator was withdrawn. And a orogastric tube was replaced into the stomach. The stomach was insufflated with 200 mL of methylene blue normal saline. There was no evidence of extravasation. The abdomen was irrigated there is no bleeding seen. The Elkin-Cosme device was used to close the 15 mm trocar with 0 Vicryl. Skin was closed with interrupted 3-0 Monocryl sutures once the trochars withdrawn. Dermabond dressing was applied. Patient was sent to recovery in stable condition.
[2022-01-11] MEDS: HYDROmorphone 0.5 MG/0.5 ML SYRINGE IVP PRN ×5 (09:22→22:25)
[2022-01-11] MEDS ORDERED: KETOROLAC 15 MG/ML 1 ML VIAL IVP ONE (09:26)
[2022-01-11] MEDS ORDERED: HYDROmorphone 0.5 MG/0.5 ML SYRINGE IVP ONE ×2 (11:11→11:35)
[2022-01-11] MEDS: ALBUTEROL NEBULIZED 2.5 MG/3 ML INHALATION SCH ×3 (15:19→21:55)
[2022-01-11] MEDS: KETOROLAC 15 MG/ML 1 ML VIAL IVP SCH ×2 (15:22→17:35)
[2022-01-11] MEDS: 0.9% NACL WITH KCL 20 MEQ/L 1,000 ML IV SCH ×2 (20:51→22:26)
[2022-01-12] MEDS: KETOROLAC 15 MG/ML 1 ML VIAL IVP SCH ×3 (01:33→11:29)
[2022-01-12] MEDS: LACTATED RINGERS 1,000 ML IV SCH (03:38)
[2022-01-12] MEDS: 0.9% NACL WITH KCL 20 MEQ/L 1,000 ML IV SCH (04:04)
[2022-01-12] MEDS ORDERED: ENOXAPARIN 40 MG/0.4 ML SYRINGE SQ SCH (06:00)
[2022-01-12] MEDS ORDERED: 1: MVI, ADULT NO.4 WITH VIT K 10 ML, THIAMINE 100 MG, FOLIC ACID 1 MG, POTASSIUM CHLORID IV SCH ×6 (08:00)
[2022-01-12] MEDS: ALBUTEROL NEBULIZED 2.5 MG/3 ML INHALATION SCH ×2 (08:18→12:01)
[2022-01-12 08:53] VITALS: BP 133/78; PULSE 84; RESP 16; TEMP 97.4
[2022-01-12] MEDS ORDERED: PANTOPRAZOLE 40 MG/10 ML VIAL IV SCH (09:00)
[2022-01-12 09:26] LABS: Basophils # (A) 0.02 X 10*3/uL (0.00-0.10); Basophils % (A) 0.2 %; Eosinophils # (A) 0.02 X 10*3/uL (0.04-0.35); Eosinophils % (A) 0.2 %; HCT 37.2 % (37.2-46.3); HGB 11.9 g/dL (12.0-15.0); Immature Grans, Automated 0.4 %; Lymphocytes # (A) 1.28 X 10*3/uL (0.90-5.00); Lymphocytes % (A) 14.3 %; MCH 25.6 pg (27.0-32.0); MCV 80.2 fL (80.0-97.0); Mean Platelet Volume 9.3 fL (9.5-12.2); Monocytes # (A) 0.66 X 10*3/uL (0.20-1.00); Monocytes % (A) 7.4 %; NRBC Per 100 WBC 0 /100 WBCS (0.0-0.0); Neutrophils # (A) 6.92 X 10*3/uL (1.80-7.70); Neutrophils % (A) 77.5 %; Platelet Count 259 X 10*3/uL (140-440); RBC 4.64 X 10*6/uL (4.10-5.20); RDW 13.5 % (11.5-14.5); WBC 8.94 X 10*3/uL (4.50-10.00)
[2022-01-12 09:45] LABS: Magnesium 1.8 mg/dL (1.5-2.4)
[2022-01-12 09:46] LABS: African American GFR (CKD) 147.9 (60.0-200.0); Anion Gap 12.4 mmol/L (10.00-18.00); Blood Urea Nitrogen 4.7 mg/dL (9.0-27.0); Calcium 8.2 mg/dL (8.7-10.3); Carbon Dioxide 19.6 mmol/L (20.0-27.5); Non-African American GFR(CKD) 127.6 (60.0-200.0); Phosphorus 2.2 mg/dL (2.4-5.1); Potassium 4.3 mmol/L (3.5-5.5)
[2022-01-12 13:05] VITALS: BMI 39.9
--- NOTE | 2022-01-12 13:07 | P.DS ---
Providers Date of admission: 01/11/22 06:58 Expected date of discharge: 01/12/22 Attending physician: Suraj Beltran Consults: 01/11/22 09:07 Consult Physician Routine Consulting Provider: Thai Simpson Consult Reason/Comments: Medical management Do you want consulting provider notified?: Yes Primary care physician: Thai Simpson MD Hospital Course: Is a 22-year-old female who underwent laparoscopic sleeve gastrectomy history. Patient is doing quite well. Her incisions clean and intact. Esophageal swelling clear liquids. She'll be discharged home and follow-up the office in one week. Procedures: Laparoscopic sleeve gastrectomy Patient Condition at Discharge: Good Plan - Discharge Summary Discharge Rx Participant: Yes New Discharge Prescriptions: New Docusate [Colace] 100 mg PO BID #20 capsule oxyCODONE HCL [OxyIR] 5 mg PO Q6H PRN 3 Days #10 tab PRN Reason: Pain Acetaminophen Tab [Tylenol] 650 mg PO Q6H #30 tab No Action SUMAtriptan SUCCINATE [Imitrex] 50 mg PO DAILY PRN PRN Reason: Migraine Headache Rimegepant Sulfate [Nurtec Odt] 75 mg PO Q48H PRN PRN Reason: Migraine Headache Ondansetron [Zofran] 4 mg SL Q8HR PRN PRN Reason: Nausea tiZANidine [Zanaflex] 4 mg PO BID Discharge Medication List SUMAtriptan SUCCINATE [Imitrex] 50 mg PO DAILY PRN 05/21/20 [History] Rimegepant Sulfate [Nurtec Odt] 75 mg PO Q48H PRN 11/13/20 [History] Ondansetron [Zofran] 4 mg SL Q8HR PRN 07/31/21 [History] tiZANidine [Zanaflex] 4 mg PO BID 07/31/21 [History] Acetaminophen Tab [Tylenol] 650 mg PO Q6H #30 tab 01/12/22 [Rx] Docusate [Colace] 100 mg PO BID #20 capsule 01/12/22 [Rx] oxyCODONE HCL [OxyIR] 5 mg PO Q6H PRN 3 Days #10 tab 01/12/22 [Rx] Follow [facility] [place] [place] [facility] - 01/18/22 2:45 pm Patient Instructions/Handouts: *Surgery [facility] - Scopalamine Patch Instructions Discharge Disposition: HOME SELF-CARE
--- NOTE | 2022-01-14 12:48 | P.CONS ---
History of Present Illness - Reason for Consult Consult date: 01/12/22 Medical management Requesting physician: Suraj Beltran - Chief Complaint Postop day #1 and laparoscopic sleeve gastrectomy - History of Present Illness This is a 26-year-old female postop day #1 elective laparoscopic sleeve gastrectomy, BMI 40. Tolerated procedure well. Denies nausea or vomiting. Ambulating in the hallway, tolerating exertion well. Pain controlled. Denies lightheadedness, dizziness or focal deficits. Denies shortness of breath. Review of Systems Constitutional: denied any fever. Cardio vascular: denied any chest pain, palpitations Gastrointestinal denied any nausea vomiting Pulmonary: Denied any shortness of breath cough Neurologic denied any new focal deficits ROS Statement: Those systems with pertinent positive or pertinent negative responses have been documented in the HPI. ROS Other: All systems not noted in ROS Statement are negative. Past Medical History Past Medical History: Neurologic Disorder Additional Past Medical History / Comment(s): migraine headaches. History of Any Multi-Drug Resistant Organisms: None Reported Past Surgical History: Cholecystectomy Additional Past Surgical History / Comment(s): [place] teeth extracted., EGD Past Anesthesia/Blood Transfusion Reactions: No Reported Reaction Past Psychological History: Anxiety Additional Psychological History / Comment(s): NOT ON ANY RXS AT THIS TIME-UNDER CONTROL Smoking Status: Never smoker Past Alcohol Use History: Occasional Past Drug Use History: Marijuana Additional Drug Use History / Comment(s): Marijuana use occasionally. Instructed to hold 24 hrs prior to procedure. - Past Family History Mother Family Medical History: No Reported History Father Family Medical History: Deep Vein Thrombosis (DVT) Medications and Allergies Home Medications Medication Instructions Recorded Confirmed Type SUMAtriptan succinate [Imitrex] 50 mg PO DAILY PRN 05/21/20 01/07/22 History Rimegepant Sulfate [Nurtec Odt] 75 mg PO Q48H PRN 11/13/20 01/07/22 History Ondansetron [Zofran] 4 mg SL Q8HR PRN 07/31/21 01/07/22 History tiZANidine [Zanaflex] 4 mg PO BID 07/31/21 01/07/22 History Acetaminophen Tab [Tylenol] 650 mg PO Q6H #30 tab 01/12/22 Rx Docusate [Colace] 100 mg PO BID #20 capsule 01/12/22 Rx oxyCODONE HCL [OxyIR] 5 mg PO Q6H PRN 3 Days #10 tab 01/12/22 Rx Allergies Allergy/AdvReac Type Severity Reaction Status Date / Time No Known Allergies Allergy Verified 01/07/22 13:18 Physical Exam PHYSICAL EXAM: VITAL SIGNS: As above GENERAL: Sitting up in bed, no acute distress HEENT: Conjunctivae normal. eyes normal. NECK: Supple, No JVD. No thyroid enlargement. No LNs CARDIOVASCULAR: S1, S2 regular.No murmur RESPIRATION: Breath sounds diminished in the bases. No rhonchi or crackles. No bronchial breathing. ABDOMEN: Soft, status post surgery, No guarding. Positive Bowel sounds heard. LEGS: No edema. no swelling PSYCHIATRY: Alert and oriented X3, mood and affect normal. NERVOUS SYSTEM: Cranial N 2-12 grossly normal.No focal deficits. Strength and sensation grossly intact.. Skin: Warm and dry, no rash Results CBC & Chem 7: 01/12/22 05:19 01/12/22 05:19 Assessment and Plan Assessment: Morbid Obesity, BMI 40, status post laparoscopic sleeve gastrectomy Marijuana use Anxiety History of migraine headaches Plan: Continue on current medication regime, monitoring and symptomatic treatment. Diet/pain management as per primary. Increase ambulation as tolerated. Aggressive pulmonary toileting. Discharge planning per surgery. The impression and plan of care has been dictated as directed. : I performed a history and examination of this patient, discussed the same with the dictator. I agree with the dictator's note ,documented as a scribe. Any additional findings or plans will be noted.
== END 2022-01-12 14:58 | disposition home or self-care (01) | DRG 621 ==
LOC: 2ORMAIN 06:58 → 4SSUR 12:43
PROVIDERS: ADMIT Surgery; ATTEND Surgery
PROC: 0DB64Z3 Excision of Stomach, Percutaneous Endoscopic Approach, Vertical (ICD-10-PCS; principal; 2022-01-11 09:00)
DX: E66.01 Morbid (severe) obesity due to excess calories (principal); F41.9 Anxiety disorder, unspecified; Z68.41 Body mass index [BMI] 40.0-44.9, adult; G43.909 Migraine, unspecified, not intractable, without status migrainosus; Z71.3 Dietary counseling and surveillance; Z90.49 Acquired absence of other specified parts of digestive tract; Z98.890 Other specified postprocedural states; Z28.21 Immunization not carried out because of patient refusal; Z79.899 Other long term (current) drug therapy
CPT/HCPCS: 80051; 81025; 82310; 82565; 83735; 84100; 84520; 85025; 88307; 94640

== ENCOUNTER → 2022-01-15 | Outpatient (CLI) | payer BC ==
[2022-01-15 10:58] VITALS: BP 134/90; PULSE 82; TEMP 97.9; BMI 41.6
== END ==
LOC: BARWHC3 10:28
PROVIDERS: ATTEND Surgery
DX: Z09 Encounter for follow-up examination after completed treatment for conditions other than malignant neoplasm (principal); E66.01 Morbid (severe) obesity due to excess calories; Z68.41 Body mass index [BMI] 40.0-44.9, adult
CPT/HCPCS: 99211

== ENCOUNTER → 2022-01-18 | Outpatient (CLI) | payer BC ==
[2022-01-18 13:33] VITALS: BP 129/69; PULSE 73; RESP 12; TEMP 98.1; BMI 41.6
--- NOTE | 2022-01-18 14:59 | P.HPBAR ---
Bariatric H&P - History & Physicial H&P Date: 01/18/22 History & Physicial: Visit/CC: sleeve follow up Patient initial contact: Initial weight: 123.831 kg Initial weight in pounds: 273.00 Height: 5 ft 5.5 in Initial BMI: 44.7 Last weight: Current weight: 115.212 kg Current weight in pounds: 254.00 Current BMI: 41.6 [place] body weight (based on NIH guidelines): 57.833 kg Excess body weight loss: 13.0% The patient is a 26 year-old F who presents for Bariatric Assessment. Patient resents today for sleeve gastrectomy follow-up. Her obesity is improving. Her current weight is 254 pounds. Past Medical History Past Medical History: No Reported History Additional Past Medical History / Comment(s): migraine headaches. History of Any Multi-Drug Resistant Organisms: None Reported Past Surgical History: Bariatric Surgery, Cholecystectomy Additional Past Surgical History / Comment(s): [place] teeth extracted.Sleeve gastrectomy 01-11-22 Past Anesthesia/Blood Transfusion Reactions: No Reported Reaction Past Psychological History: Anxiety Smoking Status: Never smoker Past Alcohol Use History: Occasional Past Drug Use History: Marijuana Additional Drug Use History / Comment(s): Marijuana use occasionally. Instructed to hold 24 hrs prior to procedure. - Past Family History Mother Family Medical History: No Reported History Father Family Medical History: Deep Vein Thrombosis (DVT) Surgical - Exam Vital Signs Temp Pulse Resp BP 98.1 F 73 12 129/69 01/18/22 13:28 01/18/22 13:28 01/18/22 13:28 01/18/22 13:28 - General well developed, well nourished, no distress - Eyes PERRL - ENT normal pinna - Neck no masses - Respiratory normal expansion - Cardiovascular Rhythm: regular - Abdomen Abdomen: soft Bariatric Assessment & Plan Plan: Improving morbid obesity. Patient follow-up in 2 weeks. Bariatric Checklist Checklist: Plan: Checklist: EGD: 1. Hiatal hernia: 2. H. Pylori: HgbA1c: Vitamin D: Smoking: Primary care physician referral: [facility] Psychiatry clearance: Cardiology clearance: Sleep study: Diet journal: VTE risk score: VTE risk level: Rehab needs at discharge:
== END ==
LOC: BARWHC3 12:49
PROVIDERS: ATTEND Surgery
DX: E66.01 Morbid (severe) obesity due to excess calories (principal); F41.9 Anxiety disorder, unspecified; Z68.41 Body mass index [BMI] 40.0-44.9, adult; Z98.84 Bariatric surgery status
CPT/HCPCS: 99211

== ENCOUNTER 2022-05-10 19:59 | Emergency (ER) | payer OTHER, BC ==
[2022-05-10 20:32] VITALS: BP 158/85; PULSE 73; RESP 18; TEMP 98.7
--- NOTE | 2022-05-10 20:55 | XR ---
EXAMINATION TYPE: XR finger LT DATE OF EXAM: 05/10/2022 COMPARISON: NONE HISTORY: Pain TECHNIQUE: 3 view FINDINGS: There is nondisplaced transverse fracture of the tuft of the distal phalanx of the middle f tanya left hand. No dislocation. Joint spaces are normal. IMPRESSION: Nondisplaced tuft fracture.
--- NOTE | 2022-05-10 21:02 | ED ---
Extremity Problem HPI - General Chief complaint: Extremity Problem,Nontraumatic Stated complaint: IHS, Finger injury Time Seen by Provider: 05/10/22 20:33 Source: patient Mode of arrival: ambulatory - History of Present Illness Initial comments: Patient is a 27-year-old female who presents with middle finger injury. Patient actually smashed her finger on metal at work. She reports minimal pain. - Related Data Home Medications Medication Instructions Recorded Confirmed tiZANidine [Zanaflex] 4 mg PO BID 07/31/21 05/10/22 Acetaminophen Tab [Tylenol] 650 mg PO Q6H PRN 05/10/22 05/10/22 Allergies Allergy/AdvReac Type Severity Reaction Status Date / Time No Known Allergies Allergy Verified 05/10/22 21:10 Review of Systems ROS Statement: Those systems with pertinent positive or pertinent negative responses have been documented in the HPI. ROS Other: All systems not noted in ROS Statement are negative. Past Medical History Past Medical History: No Reported History Additional Past Medical History / Comment(s): migraine headaches. History of Any Multi-Drug Resistant Organisms: None Reported Past Surgical History: Bariatric Surgery, Cholecystectomy Additional Past Surgical History / Comment(s): [place] teeth extracted.Sleeve gastrectomy 01-11-22 Past Anesthesia/Blood Transfusion Reactions: No Reported Reaction Past Psychological History: Anxiety Smoking Status: Never smoker Past Alcohol Use History: Occasional Past Drug Use History: Marijuana - Past Family History Mother Family Medical History: No Reported History Father Family Medical History: Deep Vein Thrombosis (DVT) General Exam General appearance: alert, in no apparent distress Respiratory exam: Present: normal lung sounds bilaterally. Absent: respiratory distress, wheezes, rales, rhonchi, stridor Cardiovascular Exam: Present: regular rate, normal rhythm, normal heart sounds. Absent: systolic murmur, diastolic murmur, rubs, gallop, clicks Extremities exam: Present: other (left middle finger swollen with ecchymosis. No nail bed involvement. Neurovascularly intact) Course Vital Signs 05/10/22 20:30 Temperature 98.7 F Pulse Rate 73 Respiratory 18 Rate Blood Pressure 158/85 O2 Sat by Pulse 99 Oximetry Procedures - Orthopedic Splinting/Casting Injury #1 Upper Extremity Injury Location: finger (left middle ) Upper Extremity Immobilizer: aluminum form splint Medical Decision Making - Medical Decision Making This is a 27-year-old female presenting with left middle finger injury. X-ray shows a displaced tuft fracture. Patient was placed in splint. MYLO ed ucation provided in detail. Patient follow-up with editorial specialist. Dr. Arias is my attending. Disposition Clinical Impression: Closed fracture of tuft of distal phalanx of finger Disposition: HOME SELF-CARE Condition: Good Instructions (If sedation given, give patient instructions): Finger Fracture (ED) Additional Instructions: Rest, ice, and elevate the injury. Take Motrin for pain. Keep splint on until orthopedic evaluation. Follow-up with editorial specialist in 1-2 days. Return to the emergency department experience new, concerning, or worsening symptoms. Is patient prescribed a controlled substance at d/c from ED?: No Referrals: Thai Simpson MD [Primary Care Provider] - 1-2 days Bob Sawyer MD [Medical Doctor] - 1-2 days
== END 2022-05-10 21:19 | disposition home or self-care (01) ==
LOC: EC 19:59
DX: S62.631A Displaced fracture of distal phalanx of left index finger, initial encounter for closed fracture (principal); W23.0XXA Caught, crushed, jammed, or pinched between moving objects, initial encounter; Y99.0 Civilian activity done for income or pay
CPT/HCPCS: 29125; 99283

== ENCOUNTER 2022-06-12 09:50 | Emergency (ER) | payer BC ==
[2022-06-12 09:58] VITALS: TEMP 98.2
[2022-06-12 10:58] LABS: Appearance,Urine Cloudy (Clear); Bilirubin,Urine Negative (Negative); Blood,Urine Negative (Negative); Calcium Oxalate Crystals,Urine Few /hpf; Color,Urine Yellow; Glucose,Urine (UA) Negative (Negative); Ketones,Urine Negative (Negative); Leukocyte Esterase,Urine Negative (Negative); Mucus,Urine Many /hpf; Nitrite,Urine Negative (Negative); Protein,Urine Trace (Negative); RBC,Urine 8 /hpf (0-5); Specific Gravity,Urine 1.029 (1.001-1.035); Squamous Epithelial Cell,Urine 4 /hpf (0-4); WBC,Urine 4 /hpf (0-5)
[2022-06-12] MEDS ORDERED: KETOROLAC 15 MG/ML 1 ML VIAL IVP STA (11:37)
[2022-06-12] MEDS ORDERED: SODIUM CHLORIDE 0.9% 1,000 ML IV STA (11:37)
--- NOTE | 2022-06-12 12:16 | ED ---
Abdominal Pain HPI - General Chief Complaint: Abdominal Pain Stated Complaint: Side Pain Time Seen by Provider: 06/12/22 11:26 Source: patient Mode of arrival: ambulatory Limitations: no limitations - History of Present Illness Initial Comments: Patient is a pleasant 27-year-old female presenting to the emergency room with complaints of right flank pain radiating into her abdomen. She reports that pain has been ongoing for just over 2 weeks; she reports that the pain has interrupted side by radiating into the abdomen no however the pain in her flank has not changed characteristics significantly but persists. She denies any associated symptoms with her flank pain including any abdominal pain not related to radiation, chest pain, shortness of breath, nausea, vomiting, hematuria, dysuria, urinary frequency, fevers or chills. She has a past medical history significant for migraine; she had gastric sleeve completed earlier this year and has not followed up with her bariatric surgeon recently. She denies any known history of kidney stones or gallstones. - Related Data Home Medications Medication Instructions Recorded Confirmed tiZANidine [Zanaflex] 4 mg PO BID 07/31/21 06/14/22 Acetaminophen Tab [Tylenol] 650 mg PO Q6H PRN 05/10/22 06/14/22 Allergies Allergy/AdvReac Type Severity Reaction Status Date / Time No Known Allergies Allergy Verified 06/14/22 13:05 Review of Systems ROS Statement: Those systems with pertinent positive or pertinent negative responses have been documented in the HPI. ROS Other: All systems not noted in ROS Statement are negative. Past Medical History Additional Past Medical History / Comment(s): migraine headaches. History of Any Multi-Drug Resistant Organisms: None Reported Past Surgical History: Bariatric Surgery, Cholecystectomy Additional Past Surgical History / Comment(s): [place] teeth extracted.Sleeve gastrectomy 01-11-22 Past Anesthesia/Blood Transfusion Reactions: No Reported Reaction Past Psychological History: Anxiety Smoking Status: Never smoker Past Alcohol Use History: Occasional Past Drug Use History: Marijuana - Past Family History Mother Family Medical History: No Reported History Father Family Medical History: Deep Vein Thrombosis (DVT) General Exam Limitations: no limitations General appearance: alert, in no apparent distress Head exam: Present: atraumatic, normocephalic, normal inspection Eye exam: Present: normal appearance, PERRL, EOMI. Absent: scleral icterus, conjunctival injection, periorbital swelling ENT exam: Present: normal exam, mucous membranes moist Neck exam: Present: normal inspection, full ROM Respiratory exam: Present: normal lung sounds bilaterally. Absent: respiratory distress, wheezes, rales, rhonchi, stridor Cardiovascular Exam: Present: regular rate, normal rhythm, normal heart sounds. Absent: systolic murmur, diastolic murmur, rubs, gallop, clicks GI/Abdominal exam: Present: soft, normal bowel sounds. Absent: distended, tenderness, guarding, rebound, rigid Rectal exam: Present: deferred Extremities exam: Present: normal inspection, full ROM. Absent: pedal edema, joint swelling Back exam: Present: normal inspection, full ROM, CVA tenderness (R). Absent: CVA tenderness (L) Neurological exam: Present: alert, oriented X3, CN II-XII intact Psychiatric exam: Present: normal affect, normal mood Skin exam: Present: warm, dry, intact, normal color. Absent: rash Course Vital Signs 06/12/22 06/12/22 09:56 13:40 Temperature 98.2 F Pulse Rate 62 52 L Respiratory 20 18 Rate Blood Pressure 136/77 132/79 O2 Sat by Pulse 99 100 Oximetry Medical Decision Making - Medical Decision Making 27-year-old female presenting to the emergency room with complaints of right flank pain radiating to her upper quadrant without any associated symptoms with bariatric surgery this year. Increased risk for renal stones and gallstones will obtain CT of the abdomen and pelvis along with urinalysis, CBC, CMP, ionized calcium and PTH. Will give IV hydration and Toradol. Pain improved with IV hydration and Toradol. CT of the abdomen and pelvis revealed right lower quadrant lymph node enlargement and nonobstructing left renal calculi. CBC unremarkable. CMP without significant abnormalities. PTH ionized calcium and calcium levels all normal. Urinalysis consistent with renal stone. No indication for further laboratory studies or diagnostic imaging. Will discharge home in stable condition with encouragement of good hydration and anti-inflammatory use. Case discussed with Dr. Senior. - Lab Data Result diagrams: 06/12/22 11:52 06/12/22 11:52 Lab Results 06/12/22 06/12/22 06/12/22 Range/Units 10:05 10:05 11:52 WBC 8.0 (3.8-10.6) k/uL RBC 4.97 (3.80-5.40) m/uL Hgb 13.6 (11.4-16.0) gm/dL Hct 40.5 (34.0-46.0) % MCV 81.4 (80.0-100.0) fL MCH 27.5 (25.0-35.0) pg MCHC 33.7 (31.0-37.0) g/dL RDW 14.0 (11.5-15.5) % Plt Count 269 (150-450) k/uL MPV 7.5 Neutrophils % 66 % Lymphocytes % 26 % Monocytes % 5 % Eosinophils % 2 % Basophils % 0 % Neutrophils # 5.2 (1.3-7.7) k/uL Lymphocytes # 2.1 (1.0-4.8) k/uL Monocytes # 0.4 (0-1.0) k/uL Eosinophils # 0.1 (0-0.7) k/uL Basophils # 0.0 (0-0.2) k/uL Sodium (137-145) mmol/L Potassium (3.5-5.1) mmol/L Chloride (98-107) mmol/L Carbon Dioxide (22-30) mmol/L Anion Gap mmol/L BUN (7-17) mg/dL Creatinine (0.52-1.04) mg/dL Est GFR (CKD-EPI)AfAm (>60 ml/min/1.73 sqM) Est GFR (CKD-EPI)NonAf (>60 ml/min/1.73 sqM) Glucose (74-99) mg/dL Calcium (8.4-10.2) mg/dL Ionized Calcium [place] (4.5-5.3) mg/dL Total Bilirubin (0.2-1.3) mg/dL AST (14-36) U/L ALT (4-34) U/L Alkaline Phosphatase (38-126) U/L Total Protein (6.3-8.2) g/dL Albumin (3.5-5.0) g/dL PTH Intact (14.0-72.0) pg/mL Urine Color Yellow Urine Appearance Cloudy H (Clear) Urine pH 6.0 (5.0-8.0) Ur Specific [place] 1.029 (1.001-1.035) Urine Protein Trace H (Negative) Urine Glucose (UA) Negative (Negative) Urine Ketones Negative (Negative) Urine Blood Negative (Negative) Urine Nitrite Negative (Negative) Urine Bilirubin Negative (Negative) Urine Urobilinogen 2.0 (<2.0) mg/dL Ur Leukocyte Esterase Negative (Negative) Urine RBC 8 H (0-5) /hpf Urine WBC 4 (0-5) /hpf Ur Squamous Epith Cells 4 (0-4) /hpf Calcium Oxalate Crystal Few H (None) /hpf Urine Mucus Many H (None) /hpf Urine HCG, Qual Not Detected (Not Detectd) 06/12/22 06/12/22 Range/Units 11:52 11:52 WBC (3.8-10.6) k/uL RBC (3.80-5.40) m/uL Hgb (11.4-16.0) gm/dL Hct (34.0-46.0) % MCV (80.0-100.0) fL MCH (25.0-35.0) pg MCHC (31.0-37.0) g/dL RDW (11.5-15.5) % Plt Count (150-450) k/uL MPV Neutrophils % % Lymphocytes % % Monocytes % % Eosinophils % % Basophils % % Neutrophils # (1.3-7.7) k/uL Lymphocytes # (1.0-4.8) k/uL Monocytes # (0-1.0) k/uL Eosinophils # (0-0.7) k/uL Basophils # (0-0.2) k/uL Sodium 141 (137-145) mmol/L Potassium 3.7 (3.5-5.1) mmol/L Chloride 106 (98-107) mmol/L Carbon Dioxide 27 (22-30) mmol/L Anion Gap 8 mmol/L BUN 6 L (7-17) mg/dL Creatinine 0.65 (0.52-1.04) mg/dL Est GFR (CKD-EPI)AfAm >90 (>60 ml/min/1.73 sqM) Est GFR (CKD-EPI)NonAf >90 (>60 ml/min/1.73 sqM) Glucose 86 (74-99) mg/dL Calcium 9.0 (8.4-10.2) mg/dL Ionized Calcium [place] 5.1 (4.5-5.3) mg/dL Total Bilirubin 0.5 (0.2-1.3) mg/dL AST 27 (14-36) U/L ALT 22 (4-34) U/L Alkaline Phosphatase 94 (38-126) U/L Total Protein 6.8 (6.3-8.2) g/dL Albumin 4.2 (3.5-5.0) g/dL PTH Intact 37.9 (14.0-72.0) pg/mL Urine Color Urine Appearance (Clear) Urine pH (5.0-8.0) Ur Specific [place] (1.001-1.035) Urine Protein (Negative) Urine Glucose (UA) (Negative) Urine Ketones (Negative) Urine Blood (Negative) Urine Nitrite (Negative) Urine Bilirubin (Negative) Urine Urobilinogen (<2.0) mg/dL Ur Leukocyte Esterase (Negative) Urine RBC (0-5) /hpf Urine WBC (0-5) /hpf Ur Squamous Epith Cells (0-4) /hpf Calcium Oxalate Crystal (None) /hpf Urine Mucus (None) /hpf Urine HCG, Qual (Not Detectd) - Radiology Data Radiology results: report reviewed, image reviewed CT the abdomen and pelvis impression the radiologist mildly predominant subcentimeter lymph nodes right lower quadrant small bowel mesentery could reflect mesenteric adenitis. Correlate clinically. Nonobstructing left renal calculi. Disposition Clinical Impression: Right flank pain, Nephrolithiasis, Mesenteric adenitis Disposition: HOME SELF-CARE Condition: Stable Instructions (If sedation given, give patient instructions): Kidney Stones (ED), Mesenteric Adenitis (ED) Additional Instructions: Please drink plenty of water avoiding julio and caffeinated products. May utilize [id number] ibuprofen or other NSAIDs as needed for pain. Your primary care provider along with your bariatric surgeon. If you develop any fevers or worsening of abdominal pain please return to the emergency room. Please return to the Emergency Department if symptoms worsen or any other concerns. Is patient prescribed a controlled substance at d/c from ED?: No Referrals: Thai Simpson MD [Primary Care Provider] - 1-2 days Time of Disposition: 13:31
[2022-06-12 12:36] LABS: Basophils % (A) 0 %; Eosinophils # (A) 0.1 k/uL (0-0.7); Eosinophils % (A) 2 %; HCT 40.5 % (34.0-46.0); HGB 13.6 gm/dL (11.4-16.0); Lymphocytes # (A) 2.1 k/uL (1.0-4.8); Lymphocytes % (A) 26 %; MCH 27.5 pg (25.0-35.0); MCHC 33.7 g/dL (31.0-37.0); MCV 81.4 fL (80.0-100.0); Mean Platelet Volume 7.5; Monocytes # (A) 0.4 k/uL (0-1.0); Monocytes % (A) 5 %; Neutrophils # (A) 5.2 k/uL (1.3-7.7); Neutrophils % (A) 66 %; Platelet Count 269 k/uL (150-450); RBC 4.97 m/uL (3.80-5.40)
[2022-06-12 13:14] LABS: Ionized Calcium 5.1 mg/dL (4.5-5.3)
--- NOTE | 2022-06-12 13:16 | CT ---
EXAMINATION TYPE: CT abdomen pelvis wo con DATE OF EXAM: 06/12/2022 COMPARISON: None HISTORY: Right sided flank pain CT DLP: 971.2 mGycm Examination of the solid and hollow viscera is limited given the lack of contrast. FINDINGS: LUNG BASES: No evidence for nodule. No evidence for infiltrate. LIVER/GB: The gallbladder surgically absent. No space-occupying hepatic lesion. PANCREAS: No pancreatic mass identified. No inflammatory process seen. SPLEEN: No evidence for splenomegaly. No intrasplenic lesions seen. ADRENALS: No adrenal nodules identified. No evidence for thickening. KIDNEYS: No evidence for renal mass. 3 mm nonobstructing calculus lower pole left kidney. No hydronep hrosis. BOWEL: Appendix has a normal appearance. No evidence of bowel obstruction. No inflammatory process. G astric sleeve changes. Lymph nodes: Mildly prominent subcentimeter lymph nodes right lower quadrant small bowel mesentery co uld reflect mesenteric adenitis. Correlate clinically. Abdominal aorta: Atheromatous changes seen. No evidence for aneurysm. Genital organs: No significant abnormality. Other: No significant abnormality. IMPRESSION: 1.Mildly prominent subcentimeter lymph nodes right lower quadrant small bowel mesentery could reflect mesenteric adenitis. Correlate clinically. 2. Nonobstructing left renal calculus.
[2022-06-12 13:18] LABS: ALT 22 U/L (4-34); AST 27 U/L (14-36); African American GFR (CKD) >90 (>60 ml/min/1.73 sqM); Albumin 4.2 g/dL (3.5-5.0); Alkaline Phosphatase 94 U/L (38-126); Anion Gap 8 mmol/L; Blood Urea Nitrogen 6 mg/dL (7-17); Carbon Dioxide 27 mmol/L (22-30); Chloride 106 mmol/L (98-107); Glucose 86 mg/dL (74-99); Non-African American GFR(CKD) >90 (>60 ml/min/1.73 sqM); Potassium 3.7 mmol/L (3.5-5.1); Sodium 141 mmol/L (137-145); Total Bilirubin 0.5 mg/dL (0.2-1.3); Total Protein 6.8 g/dL (6.3-8.2)
[2022-06-12 13:42] VITALS: BP 132/79; PULSE 52; RESP 18
== END 2022-06-12 13:42 | disposition home or self-care (01) ==
LOC: EC 09:50
DX: R10.9 Unspecified abdominal pain (principal); N20.0 Calculus of kidney; I88.9 Nonspecific lymphadenitis, unspecified; F41.9 Anxiety disorder, unspecified; F12.90 Cannabis use, unspecified, uncomplicated; Z90.49 Acquired absence of other specified parts of digestive tract; Z79.899 Other long term (current) drug therapy
CPT/HCPCS: 36415; 80053; 82330; 85025; 81001; 81025; 83970; 74176; 99284; 96374; 96361 ×2; J1885

== ENCOUNTER → 2022-06-14 | Outpatient (CLI) | payer BC ==
[2022-06-14 13:13] VITALS: BP 138/84; PULSE 72; RESP 12; TEMP 98.2; BMI 34.2
--- NOTE | 2022-06-14 15:02 | P.HPBAR ---
Bariatric H&P - History & Physicial H&P Date: 06/14/22 History & Physicial: Visit/CC: pain Patient initial contact: Initial weight: 123.831 kg Initial weight in pounds: 273.00 Height: 5 ft 5.5 in Initial BMI: 44.7 Last weight: Current weight: 94.801 kg Current weight in pounds: 209.00 Current BMI: 34.2 [place] body weight (based on NIH guidelines): 57.833 kg Excess body weight loss: 43.9% The patient is a 27 year-old F who presents for Bariatric Assessment. Patient presents today for bariatric follow. She's had some mild GERD. Patient complaints of chronic right upper quadrant pain which radiates to her back. She's had a previous cholecystectomy. Past Medical History Past Medical History: No Reported History Additional Past Medical History / Comment(s): migraine headaches. History of Any Multi-Drug Resistant Organisms: None Reported Past Surgical History: Bariatric Surgery, Cholecystectomy Additional Past Surgical History / Comment(s): [place] teeth extracted.Sleeve gastrectomy 01-11-22 Past Anesthesia/Blood Transfusion Reactions: No Reported Reaction Past Psychological History: Anxiety Smoking Status: Never smoker Past Alcohol Use History: Occasional Past Drug Use History: Marijuana Additional Drug Use History / Comment(s): Marijuana use occasionally. Instructed to hold 24 hrs prior to procedure. - Past Family History Mother Family Medical History: No Reported History Father Family Medical History: Deep Vein Thrombosis (DVT) Surgical - Exam Vital Signs Temp Pulse Resp BP 98.2 F 72 12 138/84 06/14/22 13:04 06/14/22 13:04 06/14/22 13:04 06/14/22 13:04 - General well developed, well nourished, no distress - Abdomen Abdomen: soft, non tender Bariatric Assessment & Plan Plan: Patient's GERD is minimal and will be observed. She'll undergo MRCP tonight for possible retained common bile duct stone. Bariatric Checklist Checklist: Plan: Checklist: EGD: 1. Hiatal hernia: 2. H. Pylori: HgbA1c: Vitamin D: Smoking: Primary care physician referral: [facility] Psychiatry clearance: Cardiology clearance: Sleep study: Diet journal: VTE risk score: VTE risk level: Rehab needs at discharge:
== END ==
LOC: BARWHC3 12:54
PROVIDERS: ATTEND Surgery
DX: Z48.815 Encounter for surgical aftercare following surgery on the digestive system (principal); E66.01 Morbid (severe) obesity due to excess calories; Z68.34 Body mass index [BMI] 34.0-34.9, adult
CPT/HCPCS: 99211

== ENCOUNTER → 2022-06-18 | Outpatient (CLI) | payer BC ==
--- NOTE | 2022-06-18 09:17 | MR ---
EXAMINATION TYPE: MR MRCP DATE OF EXAM: 06/18/2022 COMPARISON: CT abdomen and pelvis 6 days ago. HISTORY: Rt upper quadrant pain Standard multiplanar, multisequence MRI departmental protocol Multiplanar, multisequence images of the abdomen were acquired without contrast. Diffusion weighted i maging was performed. Thin and thick slice MRCP imaging performed. FINDINGS: Liver/gallbladder/pancreas/biliary system: No concerning solid or cystic mass in the liver. No signif icant dropout. Liver size normal. Gallbladder surgically absent. Pancreas is normal in size without c oncerning solid or cystic mass. MRCP imaging shows no suspicious intrahepatic or extra hepatic biliar y dilatation. There is somewhat tortuous and slightly prominent remnant cystic duct on image 55 witho ut intraluminal gallstone. No CBD stone seen. Other: Lung bases are grossly clear. The spleen and both adrenal glands appear within normal limits. There is 1.0 cm T1 hypointense and T2 slightly hyperintense lesion in the upper pole left kidney favo ring benign thin-walled cyst. No hydronephrosis seen bilaterally. No suspicious small or large bowel dilatation. No intra-abdominal ascites. Visualized osseous structures showed disc desiccation lower l umbar levels. IMPRESSION: No suspicious biliary dilatation. Source of patient's right upper quadrant pain not ident ified.
== END | disposition home or self-care (01) ==
LOC: RADMRIMAIN 08:10
PROVIDERS: ATTEND Surgery
DX: R10.11 Right upper quadrant pain (principal)
CPT/HCPCS: 74181

== ENCOUNTER → 2022-07-12 | Outpatient (CLI) | payer BC ==
--- NOTE | 2022-07-12 19:06 | MR ---
EXAMINATION TYPE: MR liver wo/w con DATE OF EXAM: 07/12/2022 4:17 PM INDICATION: Patient age:Female; 27 years old; Reason for study: K76.9 LIVER DISEASE, UNSPECIFIED. Right upper quadrant pain. COMPARISON: CT scan abdomen from . TECHNIQUE: Multiplanar multi-sequence imaging was performed without contrast. Post contrast imaging was performed. Post IV contrast subtraction images were also submitted for review. IV Contrast: 9 cc Gadavist FINDINGS: LOWER CHEST: No gross irregularity. ABDOMEN Liver: Loss of signal on shift imaging on out of phase sequences consistent with hepatic steatosis. Gallbladder and Bile ducts: Gallbladder is not visualized and is likely surgically absent. No evidenc e of choledocholithiasis. The common hepatic duct measures up to 8 mm the common bile duct measures u p to 7 mm. Pancreas: Unremarkable. Spleen: Unremarkable. Adrenal glands: Unremarkable. Kidneys: Bilateral high T2 low T1 signal renal cyst. Stomach and Bowel: Unremarkable as visualized. Peritoneum: No evidence of pneumoperitoneum, free fluid, or adenopathy. Vasculature: Unremarkable. No aortic aneurysm. Abdominal wall: Unremarkable. Musculoskeletal: The osseous structures appear intact. IMPRESSION: 1. No evidence of abdominal mass or evidence for acute intra-abdominal process. 2. Hepatic steatosis. 3. Simple left renal cyst.
== END | disposition home or self-care (01) ==
LOC: RADMRIMAIN 15:11
PROVIDERS: ATTEND Family Medicine
DX: K76.0 Fatty (change of) liver, not elsewhere classified (principal); N28.1 Cyst of kidney, acquired; K76.9 Liver disease, unspecified
CPT/HCPCS: 74183; A9585

== ENCOUNTER 2022-08-31 20:04 | Emergency (ER) | payer BC ==
[2022-08-31 20:20] VITALS: TEMP 97
[2022-08-31] MEDS ORDERED: ONDANSETRON 4 MG/2 ML VIAL IVP STA (20:39)
[2022-08-31] MEDS ORDERED: KETOROLAC 15 MG/ML 1 ML VIAL IVP STA (20:39)
[2022-08-31] MEDS ORDERED: SODIUM CHLORIDE 0.9% 1,000 ML IV STA (20:39)
[2022-08-31 21:11] LABS: Basophils % (A) 0 %; Eosinophils # (A) 0.1 k/uL (0-0.7); Eosinophils % (A) 1 %; HGB 13.2 gm/dL (11.4-16.0); Lymphocytes # (A) 1.7 k/uL (1.0-4.8); Lymphocytes % (A) 21 %; MCH 26.4 pg (25.0-35.0); MCHC 33.1 g/dL (31.0-37.0); MCV 79.8 fL (80.0-100.0); Mean Platelet Volume 7.2; Monocytes # (A) 0.4 k/uL (0-1.0); Monocytes % (A) 5 %; Neutrophils # (A) 5.7 k/uL (1.3-7.7); Neutrophils % (A) 72 %; Platelet Count 253 k/uL (150-450); RBC 5.01 m/uL (3.80-5.40); RDW 13.9 % (11.5-15.5)
[2022-08-31 21:26] LABS: ALT 12 U/L (4-34); AST 16 U/L (14-36); African American GFR (CKD) >90 (>60 ml/min/1.73 sqM); Alkaline Phosphatase 94 U/L (38-126); Anion Gap 6 mmol/L; Blood Urea Nitrogen 8 mg/dL (7-17); Carbon Dioxide 26 mmol/L (22-30); Chloride 107 mmol/L (98-107); Creatine Kinase 33 U/L (30-135); Glucose 102 mg/dL (74-99); Non-African American GFR(CKD) >90 (>60 ml/min/1.73 sqM); Sodium 139 mmol/L (137-145); Total Bilirubin 0.3 mg/dL (0.2-1.3); Total Protein 6.8 g/dL (6.3-8.2)
[2022-08-31 22:29] VITALS: RESP 16
[2022-08-31] MEDS ORDERED: ONDANSETRON 4 MG ODT STARTER PACK 2 TAB BTL PO STA (22:59)
--- NOTE | 2022-08-31 23:01 | ED ---
Seizure HPI - General Chief Complaint: Seizure Stated Complaint: siezure Time Seen by Provider: 08/31/22 20:34 Source: patient, EMS, RN notes reviewed Mode of arrival: EMS Limitations: altered mental status - History of Present Illness Initial Comments: This is a 27-year-old female who presents to the emergency department for a seizure. Per EMS, she was at work when the seizure began and her colleagues called EMS. EMS believes that the patient may have been faking the seizure, however the patient's ER nurse disagrees. Patient does have a history of seizures and follows up with [facility]. However, she is not currently taking any medications to treat the seizures. States that prior to the seizure beginning, she had a headache, which is what usually happens prior to seizures occurring. Her last seizure was a couple of months ago. Currently complaining of a headache and mild nausea. Denies any injuries during the event and she did not hit her head. Denies any fevers, chills, sore throat, cough, dyspnea, chest pain, palpitations, abdominal pain, vomiting, diarrhea, or back pain. MD Complaint: seizure Description of Episode: loss of consciousness, tonic-clonic movement Trauma: No Seizure History: known seizure disorder Place: work - Related Data Home Medications Medication Instructions Recorded Confirmed tiZANidine [Zanaflex] 4 mg PO BID 07/31/21 06/14/22 Acetaminophen Tab [Tylenol] 650 mg PO Q6H PRN 05/10/22 06/14/22 Allergies Allergy/AdvReac Type Severity Reaction Status Date / Time No Known Allergies Allergy Verified 06/14/22 13:05 Review of Systems ROS Statement: Those systems with pertinent positive or pertinent negative responses have been documented in the HPI. ROS Other: All systems not noted in ROS Statement are negative. Past Medical History Past Medical History: No Reported History Additional Past Medical History / Comment(s): migraine headaches. History of Any Multi-Drug Resistant Organisms: None Reported Past Surgical History: Bariatric Surgery, Cholecystectomy Additional Past Surgical History / Comment(s): [place] teeth extracted.Sleeve gastrectomy 01-11-22 Past Anesthesia/Blood Transfusion Reactions: No Reported Reaction Past Psychological History: Anxiety Smoking Status: Never smoker Past Alcohol Use History: Occasional Past Drug Use History: Marijuana - Past Family History Mother Family Medical History: No Reported History Father Family Medical History: Deep Vein Thrombosis (DVT) General Exam General appearance: alert, other (drowsy) Head exam: Present: atraumatic, normocephalic, normal inspection Respiratory exam: Present: normal lung sounds bilaterally. Absent: respiratory distress, wheezes, rales, rhonchi, stridor Cardiovascular Exam: Present: regular rate, normal rhythm, normal heart sounds. Absent: systolic murmur, diastolic murmur, rubs, gallop, clicks Neurological exam: Present: alert, oriented X3, CN II-XII intact Psychiatric exam: Present: normal affect, normal mood Skin exam: Present: warm, dry, intact, normal color. Absent: rash Course Vital Signs 08/31/22 08/31/22 08/31/22 20:16 20:33 21:19 Temperature 97 F L Pulse Rate 70 66 70 Respiratory 18 16 20 Rate Blood Pressure 151/99 150/91 152/90 O2 Sat by Pulse 99 98 98 Oximetry 08/31/22 08/31/22 08/31/22 22:19 23:22 23:29 Temperature 97 F L Pulse Rate 77 70 70 Respiratory 16 16 16 Rate Blood Pressure 166/90 141/90 141/90 O2 Sat by Pulse 99 99 99 Oximetry Medical Decision Making - Medical Decision Making This is a 27-year-old female who presents to the emergency department for a seizure. Was pt. sent in by a medical professional or institution? @ -No Did you speak to anyone other than the patient for history? @ -EMS Did you review nursing and triage notes? @ -Yes, and I agree, it is accurate with regards to the patient's symptoms. Were old charts reviewed? @ -No Differential Diagnosis? @ -Differential Seizure: Recurrent seizure disorder, febrile seizure, alcohol withdrawal, stimulants, meningitis, encephalitis, intercranial hemorrhage, intracranial tumor, stroke, eclampsia, thyrotoxicosis, hypocalcemia, hyponatremia, hypernatremia, hypomagnesemia, psychogenic, this is not meant to be an all-inclusive list. What testing was considered but not performed? (CT, X-rays, U/S, labs)? Why? @ -None What meds were considered but not given? Why? @ -None Did you discuss the management of the patient with other professionals? @ -No Did you reconcile home meds? @ -No Was smoking cessation discussed for >3mins.? @ -No Was critical care preformed (if so, how long)? @ -No Were there social determinants of health that impacted care today? How? (Homelessness, low income, unemployed, alcoholism, drug addiction, transportation, low edu. Level, literacy, decrease access to med. care, retirement, rehab)? @ -No Was there de-escalation of care discussed even if they declined? (Discuss DNR or withdrawal of care, Hospice)? @ -No What co-morbidities impacted this encounter? (DM, HTN, Smoking, COPD, CAD, Cancer, CVA, Hep., AIDS, mental health diagnosis, sleep apnea, morbid obesity)? @ -Migraines, seizure disorder Was patient admitted / discharged? @ -Discharged. Lab work obtained and found to be nonactionable. She was given IV fluids, Zofran, and Toradol. She did appear to be either drowsy or in a postictal state on initial evaluation, and she subsequently became much more awake later on and felt stable for discharge home. She was unable to provide a urine sample prior to discharge. She is instructed to contact her neurologist regarding this episode to see if they would like to have her follow-up in the office sooner than her next appointment. She is also reminded that per [place] law she is not permitted to drive for 6 months. Undiagnosed new problem with uncertain prognosis? @ -None Drug Therapy requiring intensive monitoring for toxicity (Heparin, Nitro, Insulin, Cardizem)? @ -None Were any procedures done? @ -None Diagnosis/symptom? @ -Seizure Acute, or Chronic, or Acute on Chronic? @ -Acute Uncomplicated (without systemic symptoms) or Complicated (systemic symptoms)? @ -Uncomplicated Side effects of treatment? @ -None Exacerbation, Progression, or Severe Exacerbation] @ -Not applicable Poses a threat to life or bodily function? @ -No Return precautions reviewed in depth, the patient is instructed to return to the emergency department with any new, worsening, or concerning symptoms. Patient verbalized understanding. This case was discussed in detail with the attending ED physician, Dr. Silver. Presentation, findings, and treatment plan discussed in detail as well. - Lab Data Result diagrams: 08/31/22 20:50 08/31/22 20:50 Lab Results 08/31/22 08/31/22 08/31/22 Range/Units 20:50 20:50 20:50 WBC 8.0 (3.8-10.6) k/uL RBC 5.01 (3.80-5.40) m/uL Hgb 13.2 (11.4-16.0) gm/dL Hct 40.0 (34.0-46.0) % MCV 79.8 L (80.0-100.0) fL MCH 26.4 (25.0-35.0) pg MCHC 33.1 (31.0-37.0) g/dL RDW 13.9 (11.5-15.5) % Plt Count 253 (150-450) k/uL MPV 7.2 Neutrophils % 72 % Lymphocytes % 21 % Monocytes % 5 % Eosinophils % 1 % Basophils % 0 % Neutrophils # 5.7 (1.3-7.7) k/uL Lymphocytes # 1.7 (1.0-4.8) k/uL Monocytes # 0.4 (0-1.0) k/uL Eosinophils # 0.1 (0-0.7) k/uL Basophils # 0.0 (0-0.2) k/uL Sodium 139 (137-145) mmol/L Potassium 4.0 (3.5-5.1) mmol/L Chloride 107 (98-107) mmol/L Carbon Dioxide 26 (22-30) mmol/L Anion Gap 6 mmol/L BUN 8 (7-17) mg/dL Creatinine 0.61 (0.52-1.04) mg/dL Est GFR (CKD-EPI)AfAm >90 (>60 ml/min/1.73 sqM) Est GFR (CKD-EPI)NonAf >90 (>60 ml/min/1.73 sqM) Glucose 102 H (74-99) mg/dL Plasma Lactic Acid Estuardo 1.2 (0.7-2.0) mmol/L Calcium 9.0 (8.4-10.2) mg/dL Total Bilirubin 0.3 (0.2-1.3) mg/dL AST 16 (14-36) U/L ALT 12 (4-34) U/L Alkaline Phosphatase 94 (38-126) U/L Creatine Kinase 33 (30-135) U/L Total Protein 6.8 (6.3-8.2) g/dL Albumin 4.0 (3.5-5.0) g/dL Disposition Clinical Impression: Generalized seizure Disposition: HOME SELF-CARE Instructions (If sedation given, give patient instructions): Seizure/Epilepsy Discharge Instructions & Follow-Up, Recurrent Seizures in Adults (ED) Additional Instructions: Return to the emergency department with any new, worsening, or concerning symptoms. Alternate with ibuprofen and Tylenol as needed for any headaches. Contact your neurologist regarding the seizure and see if she would like you to follow-up sooner than scheduled. You will need to avoid driving for 6 months per seizure laws in [place]. Follow up with your primary care provider in 1-2 days. Is patient prescribed a controlled substance at d/c from ED?: No Referrals: Thai Simpson MD [Primary Care Provider] - 1-2 days
[2022-08-31 23:23] VITALS: BP 141/90; PULSE 70
== END 2022-08-31 23:29 | disposition home or self-care (01) ==
LOC: EC 20:04
DX: R56.9 Unspecified convulsions (principal); F41.9 Anxiety disorder, unspecified; F12.90 Cannabis use, unspecified, uncomplicated
CPT/HCPCS: 80053; 82550; 83605; 85025; 99284; 96374; 96375; 96361 ×3; J2405; J1885; S0119; 36415

== ENCOUNTER → 2023-01-03 | Outpatient (CLI) | payer BC ==
[2023-01-03 13:46] VITALS: BP 124/88; PULSE 103; TEMP 97.6; BMI 30.7
--- NOTE | 2023-01-04 08:37 | P.HPBAR ---
Bariatric H&P - History & Physicial H&P Date: 01/03/23 History & Physicial: Visit/CC: F/U Patient initial contact: Initial weight: 123.831 kg Initial weight in pounds: 273.00 Height: 5 ft 5.5 in Initial BMI: 44.7 Last weight: Current weight: 84.958 kg Current weight in pounds: 187.30 Current BMI: 30.7 Snyder body weight (based on NIH guidelines): 57.833 kg Excess body weight loss: 58.9% The patient is a 27 year-old F who presents for Bariatric Assessment. Patient presents today for sleeve gastrectomy fall. She's had some mild GERD. She's not been seen in several months. Her current weight is 187 pounds. She appears weight 209 pounds. Past Medical History Past Medical History: No Reported History Additional Past Medical History / Comment(s): migraine headaches. History of Any Multi-Drug Resistant Organisms: None Reported Past Surgical History: Bariatric Surgery, Cholecystectomy Additional Past Surgical History / Comment(s): [place] teeth extracted.Sleeve gastrectomy 01-11-22 Past Anesthesia/Blood Transfusion Reactions: No Reported Reaction Past Psychological History: Anxiety Smoking Status: Never smoker Past Alcohol Use History: Occasional Past Drug Use History: Marijuana Additional Drug Use History / Comment(s): Marijuana use occasionally. Instructed to hold 24 hrs prior to procedure. - Past Family History Mother Family Medical History: No Reported History Father Family Medical History: Deep Vein Thrombosis (DVT) Surgical - Exam Vital Signs Temp Pulse BP 97.6 F 103 H 124/88 01/03/23 13:42 01/03/23 13:42 01/03/23 13:42 - General well developed, well nourished, no distress - Eyes PERRL - ENT normal pinna - Neck no masses - Respiratory normal expansion - Cardiovascular Rhythm: regular - Abdomen Abdomen: soft, non tender Bariatric Assessment & Plan Plan: Patient Weight loss. Her GERD is minimal old be observed. She'll follow-up in 4 weeks. Bariatric Checklist Checklist: Plan: Checklist: EGD: 1. Hiatal hernia: 2. H. Pylori: HgbA1c: Vitamin D: Smoking: Primary care physician referral: [facility] Psychiatry clearance: Cardiology clearance: Sleep study: Diet journal: VTE risk score: VTE risk level: Rehab needs at discharge:
== END ==
LOC: BARWHC3 13:26
PROVIDERS: ATTEND Surgery
DX: E66.01 Morbid (severe) obesity due to excess calories (principal); Z68.30 Body mass index [BMI] 30.0-30.9, adult; G43.909 Migraine, unspecified, not intractable, without status migrainosus; K21.9 Gastro-esophageal reflux disease without esophagitis
CPT/HCPCS: 99211

== ENCOUNTER → 2023-01-03 | Outpatient (CLI) | payer BC ==
[2023-01-03 19:54] LABS: HCT 41.1 %; HGB 12.9 d/dL; MCHC 31.4 d/dL; MCV 82.7 FL; Mean Platelet Volume 9.2 FL; NRBC Per 100 WBC 0 X 10*3/uL; Platelet Count 258 X 10*3/uL; RBC 4.97 X 10*6/uL; RDW 13.1 %; WBC 5.71 X 10*3/uL
[2023-01-03 21:00] LABS: % Iron Saturation 5.55; ALT 12 U/L; AST 13 U/L; Albumin 4.8 d/dL; Albumin/Globulin Ratio 1.92 Ratio; Alkaline Phosphatase 99 U/L; Blood Urea Nitrogen 8.4 mg/dL; Calcium 9.6 mg/dL; Chloride 102 mmol/L; Globulin 2.5 d/dL; Glucose 86 mg/dL; Iron 31 UG/DL; Magnesium 2.2 mg/dL; Potassium 3.9 mmol/L; Sodium 142 mmol/L; Total Bilirubin 0.4 mg/dL; Total Iron Binding Capacity 559 UG/DL; Total Protein 7.3 d/dL
[2023-01-04 00:59] LABS: Ferritin 13 ng/mL
[2023-01-04 12:56] LABS: Zinc, Serum 73 ug/dL (60-130)
[2023-01-05 06:52] LABS: Vitamin A 34 ug/dL (38-106)
== END | disposition home or self-care (01) ==
LOC: LABWHC1 14:02
PROVIDERS: ATTEND Surgery
DX: E66.01 Morbid (severe) obesity due to excess calories (principal); D50.8 Other iron deficiency anemias; E44.0 Moderate protein-calorie malnutrition; E55.9 Vitamin D deficiency, unspecified; T56.894A Toxic effect of other metals, undetermined, initial encounter
CPT/HCPCS: 36415; 80053; 82306; 82607; 82728; 82746; 83540; 83550; 83735; 84255; 84425; 84443; 84590; 84630; 85027

== ENCOUNTER → 2023-03-22 | Outpatient (CLI) | payer BC ==
--- NOTE | 2023-03-22 14:02 | MR ---
EXAMINATION TYPE: MR lumbar spine wo con DATE OF EXAM: 03/22/2023 COMPARISON: None HISTORY: Low back pain TECHNIQUE: Multiplanar, multisequence images of the lumbar spine were acquired without IV contrast. L1-L2: Normal disc appearance without desiccation. No herniation, protrusion or disc bulging. No ca nal stenosis is present. Foramina are patent bilaterally. L2-L3: Normal disc appearance without desiccation. No herniation, protrusion or disc bulging. No ca nal stenosis is present. Foramina are patent bilaterally. L3-L4: Normal disc appearance without desiccation. No herniation, protrusion or disc bulging. No ca nal stenosis is present. Foramina are patent bilaterally. L4-L5: There is a mild disc desiccation noted. Small right paracentral disc protrusion minimally effa santana the ventral thecal sac. No evidence for central stenosis. Foramina are patent. L5-S1: Mild disc desiccation noted. Posterior lateral and to the right subligamentous disc herniation results in narrowing of the right-sided neural foramen and mild edema of the exiting nerve root. No evidence for central stenosis. Left neural foramen is patent. Lumbar segments are intact. No paraspinal masses are identified. Conus medullaris has a normal appe arance. IMPRESSION: 1. Disc desiccation mild in degree at L4-5 and L5-S1. 2. Posterior lateral and to the right subligamentous disc herniation results in narrowing of the righ t-sided neural foramen and mild edema of the exiting nerve root.
== END | disposition home or self-care (01) ==
LOC: RADMRIMAIN 12:20
PROVIDERS: ATTEND Family Medicine
DX: M51.26 Other intervertebral disc displacement, lumbar region (principal); M51.36 Other intervertebral disc degeneration, lumbar region; M99.73 Connective tissue and disc stenosis of intervertebral foramina of lumbar region; R60.0 Localized edema
CPT/HCPCS: 72148

== ENCOUNTER → 2023-07-18 | Outpatient (CLI) | payer BC ==
[2023-07-18 10:39] VITALS: BP 137/85; PULSE 85; TEMP 97.8; BMI 27.3
== END ==
LOC: BARWHC3 09:49
PROVIDERS: ATTEND Surgery
DX: E66.01 Morbid (severe) obesity due to excess calories (principal); F12.90 Cannabis use, unspecified, uncomplicated; Z68.27 Body mass index [BMI] 27.0-27.9, adult
CPT/HCPCS: 99211

== ENCOUNTER → 2023-07-18 | Outpatient (CLI) | payer BC ==
[2023-07-18 15:16] LABS: Basophils # (A) 0.03 X 10*3/uL (0.00-0.10); Basophils % (A) 0.4 %; Eosinophils # (A) 0.16 X 10*3/uL (0.04-0.35); Eosinophils % (A) 2.4 %; Lymphocytes # (A) 2.18 X 10*3/uL (0.90-5.00); Lymphocytes % (A) 32.3 %; MCH 25.6 pg (27.0-32.0); MCHC 31.7 g/dL (32.0-37.0); MCV 80.9 FL (80.0-97.0); Mean Platelet Volume 9.2 FL (9.5-12.2); Monocytes # (A) 0.39 X 10*3/uL (0.20-1.00); Monocytes % (A) 5.8 %; NRBC Per 100 WBC 0 X 10*3/uL (0.00-0.01); Neutrophils # (A) 3.98 X 10*3/uL (1.80-7.70); Platelet Count 273 X 10*3/uL (140-440); RBC 5.07 X 10*6/uL (4.10-5.20); RDW 14.1 % (11.5-14.5); WBC 6.75 X 10*3/uL (4.50-10.00)
[2023-07-18 15:29] LABS: ALT 16 U/L (8-44); AST 14 U/L (13-35); Albumin 4.4 g/dL (3.8-4.9); Albumin/Globulin Ratio 1.83 Ratio (1.60-3.17); Alkaline Phosphatase 83 U/L (41-126); BUN/Creat Ratio 10.71 Ratio (12.00-20.00); Blood Urea Nitrogen 7.5 mg/dL (9.0-27.0); Calcium 9.2 mg/dL (8.7-10.3); Carbon Dioxide 22.6 mmol/L (21.6-31.8); Chloride 110 mmol/L (96-109); Globulin 2.4 g/dL (1.6-3.3); Glucose 91 mg/dL (70-110); Potassium 3.9 mmol/L (3.5-5.5); Sodium 143 mmol/L (135-145); Total Bilirubin 0.3 mg/dL (0.3-1.2); Total Protein 6.8 g/dL (6.2-8.2)
== END | disposition home or self-care (01) ==
LOC: LABPAT 10:41
PROVIDERS: ATTEND Surgery
DX: Z01.812 Encounter for preprocedural laboratory examination (principal); I49.8 Other specified cardiac arrhythmias; R94.31 Abnormal electrocardiogram [ECG] [EKG]
CPT/HCPCS: 80053; 85025; 93005

== ENCOUNTER 2023-08-08 08:22 | Observation (INO) | payer BC ==
[~2023-08-08 08:22] MED LIST changes: -ENOXAPARIN 40 MG/0.4 ML SYRINGE SQ PRN; +LIDOCAINE 1% (10MG/ML) FOR IV START INTRADERMA PRN; +ONDANSETRON 4 MG/2 ML VIAL IVP ONE; +SCOPOLAMINE 1 MG/72 HR PATCH TRANSDERM ONE; -ceFAZolin 3 GM in SODIUM CHLORIDE 0.9% 100 ML IVPB PRN; +droPERidol 5 MG/2 ML VIAL IVP PRN
[2023-08-08] MEDS ORDERED: ACETAMINOPHEN TAB 500 MG TAB ONE (10:06)
[2023-08-08] MEDS: LACTATED RINGERS 1,000 ML IV SCH (10:33)
[2023-08-08] MEDS ORDERED: MIDAZOLAM 2 MG/2 ML VIAL IVP ONE (10:38)
[2023-08-08] MEDS ORDERED: fentaNYL (PF) 50 MCG/ML 2 ML AMP IVP ONE (10:45)
--- NOTE | 2023-08-08 10:58 | P.ANPRN ---
Procedure Note - Anesthesia - Nerve Block Performed Bilateral Erector Spinae Single Time Out Performed: Yes Date of Procedure: 08/08/23 Procedure Start Time: 10:37 Procedure Stop Time: 10:50 Location of Patient: PreOp Indication: Acute Post-Operative Pain, Analgesia, Requested by Surgeon Sedation Type: Sedate with meaningful contact maintained Preparation: Sterile Prep Position: Sitting Needle Types: Pajunk Needle Gauge: 21 Ultrasound used to visualize needle placement: Yes Ultrasound used to observe medication spread: Yes Injectate: 0.5% Ropivacaine (see comment for volume) (Ropiv 15ml+[id number] each side.) Narrative: T11 levels. Blood Aspirated: No Pain Paresthesia on Injection Noted: No Resistance on Injection: Normal Image Stored and Saved: Yes Events: Uneventful and Well Tolerated
[2023-08-08] MEDS ORDERED: HEPARIN SODIUM,PORCINE 5,000 UNIT/ML 1 ML VIAL SQ ONE (11:11)
--- NOTE | 2023-08-08 12:20 | P.GSHP ---
History of Present Illness H&P Date: 08/08/23 Chief Complaint: Panniculus This is a 28-year-old female who has developed a well-formed panniculus after weight loss. Patient's. History gastric sleeve surgery. Patient's loss excess 100 pounds. She has a well-formed panniculus. Past Medical History Past Medical History: No Reported History Additional Past Medical History / Comment(s): migraine headaches. History of Any Multi-Drug Resistant Organisms: None Reported Past Surgical History: Bariatric Surgery, Cholecystectomy Additional Past Surgical History / Comment(s): [place] teeth extracted.Sleeve gastrectomy 01-11-22 Past Anesthesia/Blood Transfusion Reactions: No Reported Reaction Past Psychological History: Anxiety Smoking Status: Never smoker Past Alcohol Use History: Occasional Past Drug Use History: Marijuana Additional Drug Use History / Comment(s): Marijuana use occasionally. Instructed to hold 24 hrs prior to procedure. - Past Family History Mother Family Medical History: No Reported History Father Family Medical History: Deep Vein Thrombosis (DVT) Medications and Allergies Home Medications Medication Instructions Recorded Confirmed Type tiZANidine [Zanaflex] 4 mg PO HS 07/31/21 08/04/23 History Allergies Allergy/AdvReac Type Severity Reaction Status Date / Time No Known Allergies Allergy Verified 08/04/23 11:10 Surgical - Exam Vital Signs Temp Pulse Resp BP Pulse Ox 98.6 F 74 20 139/76 98 08/08/23 10:01 08/08/23 10:01 08/08/23 10:01 08/08/23 10:08/08/23 10:01 - General well developed, well nourished, no distress - Eyes PERRL - ENT normal pinna, normal nares - Neck no masses - Respiratory normal expansion - Cardiovascular Rhythm: regular - Abdomen Patient has redundant skin across her abdomen and back. There is a well-formed panniculus. Abdomen: soft, non tender Assessment and Plan Assessment: Because. Patient will be scheduled for panniculectomy. Patient is aware the risk of possible potential need for cosmetic surgery patient is aware the risk of hematoma bleeding and infection. She is aware of risk of dogears and possibility of surgery for cosmesis.
[2023-08-08] MEDS ORDERED: HYDROmorphone (PF) 1 MG/ML ONE (12:21)
[2023-08-08] MEDS ORDERED: PROPOFOL 10 MG/ML 20 ML VIAL IV ONE (12:21)
[2023-08-08] MEDS ORDERED: fentaNYL (PF) 50 MCG/ML 2 ML AMP ONE (12:21)
[2023-08-08] MEDS ORDERED: MIDAZOLAM 2 MG/2 ML VIAL ONE (12:21)
[2023-08-08] MEDS ORDERED: LIDOCAINE 1% INJ 10MG/ML (20 ML MDV) ONE (12:21)
[2023-08-08] MEDS ORDERED: ROCURONIUM 10 MG/ML (5 ML VIAL) IV ONE (12:21)
[2023-08-08] MEDS ORDERED: SUCCINYLCHOLINE CHLORIDE 200 MG/10 ML VIAL IV ONE (12:21)
[2023-08-08] MEDS ORDERED: SODIUM CHLORIDE 0.9% (PF) 10 ML VIAL ONE (12:21)
[2023-08-08] MEDS ORDERED: GLYCOPYRROLATE 0.2 MG/ML 2 ML VIAL ONE (12:21)
[2023-08-08] MEDS ORDERED: NEOSTIGMINE 1 MG/ML 10 ML VIAL ONE (12:21)
[2023-08-08] MEDS ORDERED: ROPIVACAINE 5 MG/ML 30 ML VIAL ONE (12:21)
[2023-08-08] MEDS ORDERED: LACTATED RINGERS 1,000 ML IV ONE (14:48)
[2023-08-08] MEDS: HYDROmorphone 0.5 MG/0.5 ML SYRINGE IVP PRN ×4 (15:18→16:57)
[2023-08-08] MEDS ORDERED: ACETAMINOPHEN TAB 325 MG TAB PO PRN (16:05)
[2023-08-08] MEDS ORDERED: ONDANSETRON 4 MG/2 ML VIAL IVP PRN (16:05)
--- NOTE | 2023-08-08 16:08 | P.OP ---
Date of Procedure: 08/08/23 Preoperative Diagnosis: panniculus Postoperative Diagnosis: panniculus Procedure(s) Performed: panniculectomy Anesthesia: KEVIN Surgeon: Suraj Beltran Estimated Blood Loss (ml): 50 Pathology: none sent Condition: stable Disposition: PACU Description of Procedure: PROCEDURE: The patient was placed on the operating table in supine position and received general anesthetic. The abdomen was prepped and draped in the usual sterile fashion. The lower skin incision was then made after the skin was marked with a marker. The incision ran from the pubic area to the level of the anterosuperior iliac spine. Using blunt and sharp dissection and electrocautery the subcutaneous tissues were then dissected down to the level of the fascia external oblique. Next, a meghan shaped incision was made around the umbilicus and the umbilicus was then dissected down to the level of the fascia external oblique. Care was taken to ensure that the umbilical stalk was wide enough in order to maintain viability of the umbilicus. After the umbilicus was dissected a 0 Vicryl suture was used to orientate the umbilicus. The suture was placed at the 12 o'clock position of the umbilicus. Following this the dissection was then made from the inferior pannicular incision cephalad. The x iphoid and costal margins were the limits of the dissection. Several small perforating vessels were ligated and cautery was used to maintain hemostasis. Once the dissection was performed the panniculus was then divided in the midline from the level of the umbilicus towards the pubic area. Downward and lateral traction was then placed on the abdominal wall and the skin was suitably marked for transection of the umbilicus. The skin was then incised and the Bovie was used for dissection of the pannicular flap. Next, three 10-Yoruba HOOD drains were placed in the wound and brought out through separate stab incisions at the level of the pubic area. The drains were secured to the skin using 3-0 nylon. After the HOOD drains were secured, Carolann's fascia was closed with interrupted 0 Vicryl sutures and then the skin was closed with running 3-0 Monocryl sutures. Prior to closure of the abdominal wall care was taken to ensure that both the abdominal wall and the abdominal wall flap were hemostatic. Next, the umbilicus was reattached to the abdominal wall. A marking line was made across the top of the iliac crest and this line intercepted with the midline abdominal wall line that had been previously made in the preoperative hold area. A small semicircular U-shaped incision was created at the intersection of the two lines and the umbilicus was brought up through this incision. The umbilicus was then trimmed and secured to the skin using 3-0 Monocryl sutures. At this point the drains were placed to suction. The abdomen was cleaned and then sterile tape was placed over top of the incisions. Abdominal binder was then placed. The patient tolerated the procedure well. The patient was sent to recovery room in stable condition.
[2023-08-08] MEDS ORDERED: HYDROmorphone 0.5 MG/0.5 ML SYRINGE IVP ONE (17:21)
[2023-08-08] MEDS: HYDROmorphone 1 MG/ML 1 ML SYRINGE IVP PRN (19:12)
[2023-08-08] MEDS: DEXTROSE 5%-0.9% NACL 1,000 ML IV SCH ×2 (20:41→21:41)
[2023-08-08] MEDS: HYDROcodone/APAP 5-325MG 1 EACH TAB PO PRN (20:42)
[2023-08-09] MEDS: HYDROmorphone 1 MG/ML 1 ML SYRINGE IVP PRN ×2 (02:46→05:33)
[2023-08-09] MEDS: LACTATED RINGERS 1,000 ML IV SCH (03:21)
[2023-08-09] MEDS: HYDROcodone/APAP 5-325MG 1 EACH TAB PO PRN ×2 (07:54→12:00)
[2023-08-09 08:04] VITALS: BP 143/83; PULSE 68; RESP 20; TEMP 98.3
[2023-08-09 08:28] LABS: HCT 35.3 % (34.0-46.0); MCH 27.2 pg (25.0-35.0); MCHC 33.8 g/dL (31.0-37.0); MCV 80.3 fL (80.0-100.0); Mean Platelet Volume 6.9; Platelet Count 234 k/uL (150-450); WBC 7.4 k/uL (3.8-10.6)
[2023-08-09 08:36] LABS: Sodium 138 mmol/L (137-145)
[2023-08-09 08:37] LABS: African American GFR (CKD) >90 (>60 ml/min/1.73 sqM); Anion Gap 9 mmol/L; Blood Urea Nitrogen 8 mg/dL (7-17); Calcium 8.6 mg/dL (8.4-10.2); Carbon Dioxide 26 mmol/L (22-30); Chloride 103 mmol/L (98-107); Glucose 105 mg/dL (74-99); Non-African American GFR(CKD) >90 (>60 ml/min/1.73 sqM); Potassium 4.1 mmol/L (3.5-5.1)
--- NOTE | 2023-08-09 10:59 | P.HPIM ---
Past Medical History Past Medical History: No Reported History Additional Past Medical History / Comment(s): migraine headaches. History of Any Multi-Drug Resistant Organisms: None Reported Past Surgical History: Bariatric Surgery, Cholecystectomy Additional Past Surgical History / Comment(s): [place] teeth extracted.Sleeve gastrectomy 01-11-22. Panniculectomy 08-08-23 Past Anesthesia/Blood Transfusion Reactions: No Reported Reaction Past Psychological History: Anxiety Smoking Status: Never smoker Past Alcohol Use History: Occasional Past Drug Use History: Marijuana Additional Drug Use History / Comment(s): Marijuana use occasionally. Instructed to hold 24 hrs prior to procedure. - Past Family History Mother Family Medical History: No Reported History Father Family Medical History: Deep Vein Thrombosis (DVT) Medications and Allergies Home Medications Medication Instructions Recorded Confirmed Type tiZANidine [Zanaflex] 4 mg PO HS 07/31/21 08/04/23 History Allergies Allergy/AdvReac Type Severity Reaction Status Date / Time No Known Allergies Allergy Verified 08/04/23 11:10 Physical Exam Vitals: Vital Signs Temp Pulse Resp BP Pulse Ox 08/09/23 07:16 98.3 F 68 20 143/83 100 08/09/23 02:00 97.7 F 81 137/85 97 08/08/23 20:00 98.3 F 66 16 145/84 100 08/08/23 17:40 62 16 152/84 100 08/08/23 17:25 65 18 151/84 98 08/08/23 17:10 85 18 147/69 98 08/08/23 16:55 94 18 166/73 97 08/08/23 16:40 71 16 150/70 100 08/08/23 16:25 72 18 138/70 99 08/08/23 16:10 95 16 144/78 98 08/08/23 15:55 84 16 142/77 99 08/08/23 15:40 77 16 147/70 96 08/08/23 15:24 67 16 139/75 100 08/08/23 15:09 97.2 F L 66 16 150/82 100 Intake and Output 08/08/23 08/09/23 08/09/23 22:59 06:59 14:59 Intake Total 400 Output Total 140 100 Balance 260 -100 Intake: IV 400 Output: Drainage 140 100 Left Groin 90 60 Right Groin 50 40 Other: Weight 74 kg Results CBC & Chem 7: 08/09/23 08:09 08/09/23 08:09 Labs: Abnormal Lab Results - Last 24 Hours (Table) 08/09/23 Range/Units 08:09 Glucose 105 H (74-99) mg/dL Thrombosis Risk Factor Assmnt - Choose All That Apply Any of the Below Risk Factors Present?: Yes Each Factor Represents 1 point: Obesity (BMI >25) Each Risk Factor Represents 2 Points: Major surgery Each Risk Factor Represents 3 Points: Family history of DVT/PE Thrombosis Risk Factor Assessment Total Risk Factor Score: 6 Thrombosis Risk Factor Assessment Level: High Risk Assessment and Plan Assessment: Plan: Continue on current medication regime ,monitoring and symptomatic treatment.
[2023-08-09] MEDS ORDERED: PANTOPRAZOLE 40 MG/10 ML VIAL IVP SCH (11:15)
[2023-08-09] MEDS: DEXTROSE 5%-0.9% NACL 1,000 ML IV SCH (11:24)
--- NOTE | 2023-08-09 11:33 | P.DS ---
Providers Expected date of discharge: 08/09/23 Attending physician: Suraj Beltran Consults: 08/08/23 16:05 Consult Physician Routine Consulting Provider: Thai Simpson Consult Reason/Comments: medical management Do you want consulting provider notified?: Yes Primary care physician: Thai Simpson MD Hospital Course: Discharge diagnosis 1. Panniculus status post panniculectomy Hospital course This is a 28-year-old female with history of sleep gastrectomy. She has a well- formed panniculus. She is status post panniculectomy. Patient's pain is controlled. She's tolerating diet. She has been up and ambulating. She is afebrile. She is having flatus. She is stable for discharge. Physician Bandoleer Packer note has been reviewed by physician. Signing provider agrees with the documented findings, assessment, and plan of care. Patient Condition at Discharge: Stable Plan - Discharge Summary Discharge Rx Participant: No New Discharge Prescriptions: New oxyCODONE HCL [OxyIR] 5 mg PO Q6H PRN 3 Days #12 tab PRN Reason: Pain Ibuprofen [Motrin] 600 mg PO Q8HR PRN #30 tab PRN Reason: Pain Acetaminophen Tab [Tylenol] 1,000 mg PO Q6HR PRN #30 tablet PRN Reason: Pain Continue tiZANidine [Zanaflex] 4 mg PO HS Discharge Medication List tiZANidine [Zanaflex] 4 mg PO HS 07/31/21 [History] Acetaminophen Tab [Tylenol] 1,000 mg PO Q6HR PRN #30 tablet 08/09/23 [Rx] Ibuprofen [Motrin] 600 mg PO Q8HR PRN #30 tab 08/09/23 [Rx] oxyCODONE HCL [OxyIR] 5 mg PO Q6H PRN 3 Days #12 tab 08/09/23 [Rx] Follow up Appointment(s)/Referral(s): Thai Simpson MD [Primary Care Provider] - 2 Weeks Suraj Beltran MD [STAFF PHYSICIAN] - 1 Week Activity/Diet/Wound Care/Special Instructions: No driving while taking OxyIR No lifting over 10 pounds You may shower. No soaking or tub baths for 2 weeks Very light activity until you are reevaluated at your follow up appointment with your surgeon Keep a log of HOOD drain output and bring with you to your follow-up appointment Milk/strip drains 2-3 times a day Discharge Disposition: HOME SELF-CARE
--- NOTE | 2023-08-09 12:05 | P.CONS ---
History of Present Illness - Reason for Consult Consult date: 08/09/23 Medical management Requesting physician: Suraj Beltran - Chief Complaint Status post panniculectomy - History of Present Illness This is a 28-year-old female with past medical history significant for morbid obesity, laparoscopic cholecystectomy gastrectomy, status post panniculectomy. Tolerated procedure well. Tolerating diet, denies nausea or vomiting. Ambulating in room, tolerating exertion well. Denies lightheadedness dizziness or focal deficits. Denies chest pain, chest pressure, palpitations or shortness of breath . Continue O2 sats in the high 90s to 100% on room air.Pain controlled. Afebrile Review of Systems Constitutional: denied any fever. Cardio vascular: denied any chest pain, palpitations Gastrointestinal denied any nausea vomiting Pulmonary: Denied any shortness of breath cough Neurologic denied any new focal deficits ROS Statement: Those systems with pertinent positive or pertinent negative responses have been documented in the HPI. ROS Other: All systems not noted in ROS Statement are negative. Past Medical History Past Medical History: No Reported History Additional Past Medical History / Comment(s): migraine headaches. History of Any Multi-Drug Resistant Organisms: None Reported Past Surgical History: Bariatric Surgery, Cholecystectomy Additional Past Surgical History / Comment(s): [place] teeth extracted.Sleeve gastrectomy 01-11-22. Panniculectomy 08-08-23 Past Anesthesia/Blood Transfusion Reactions: No Reported Reaction Past Psychological History: Anxiety Smoking Status: Never smoker Past Alcohol Use History: Occasional Past Drug Use History: Marijuana Additional Drug Use History / Comment(s): Marijuana use occasionally. Instructed to hold 24 hrs prior to procedure. - Past Family History Mother Family Medical History: No Reported History Father Family Medical History: Deep Vein Thrombosis (DVT) Medications and Allergies Home Medications Medication Instructions Recorded Confirmed Type tiZANidine [Zanaflex] 4 mg PO HS 07/31/21 08/04/23 History Acetaminophen Tab [Tylenol] 1,000 mg PO Q6HR PRN #30 tablet 08/09/23 Rx Ibuprofen [Motrin] 600 mg PO Q8HR PRN #30 tab 08/09/23 Rx oxyCODONE HCL [OxyIR] 5 mg PO Q6H PRN 3 Days #12 tab 08/09/23 Rx Allergies Allergy/AdvReac Type Severity Reaction Status Date / Time No Known Allergies Allergy Verified 08/04/23 11:10 Physical Exam Vitals: Vital Signs Temp Pulse Resp BP Pulse Ox 08/09/23 07:16 98.3 F 68 20 143/83 100 08/09/23 02:00 97.7 F 81 137/85 97 08/08/23 20:00 98.3 F 66 16 145/84 100 08/08/23 17:40 62 16 152/84 100 08/08/23 17:25 65 18 151/84 98 08/08/23 17:10 85 18 147/69 98 08/08/23 16:55 94 18 166/73 97 08/08/23 16:40 71 16 150/70 100 08/08/23 16:25 72 18 138/70 99 08/08/23 16:10 95 16 144/78 98 08/08/23 15:55 84 16 142/77 99 08/08/23 15:40 77 16 147/70 96 08/08/23 15:24 67 16 139/75 100 08/08/23 15:09 97.2 F L 66 16 150/82 100 Intake and Output 08/08/23 08/09/23 08/09/23 22:59 06:59 14:59 Intake Total 400 Output Total 140 100 20 Balance 260 -100 -20 Intake: IV 400 Output: Drainage 140 100 20 Left Groin 90 60 10 Right Groin 50 40 10 Other: Weight 74 kg PHYSICAL EXAM: VITAL SIGNS: As above GENERAL: Alert and oriented 3, Sitting up in bed, no acute distress HEENT: Normocephalic, Conjunctivae normal. eyes normal. NECK: Supple, No JVD. CARDIOVASCULAR: S1, S2 regular.No murmur RESPIRATION: Unlabored, equal air entry,CTA with bilateral bases diminished. ABDOMEN: Soft, status post surgery, abdominal binder, JPs with serosanguineous drainage. No guarding. Positive Bowel sounds heard. LEGS: No edema. no swelling. NERVOUS SYSTEM: Cranial N 2-12 grossly normal.No focal deficits. Strength and sensation grossly intact. Skin: Warm and dry, no rash Results CBC & Chem 7: 08/09/23 08:09 08/09/23 08:09 Labs: Abnormal Lab Results - Last 24 Hours (Table) 08/09/23 Range/Units 08:09 Glucose 105 H (74-99) mg/dL Assessment and Plan Assessment: Panniculus status post panniculectomy History of laparoscopic sleeve gastrectomy Obesity, BMI 27 Marijuana use Anxiety History of migraine headaches Plan: Continue on current medication regime, monitoring and symptomatic treatment. Pain management as per primary. PPI ordered for GI prophylaxis. Increase ambulation as tolerated. Aggressive pulmonary toileting, incentive spirometer ordered. Discharge planning per surgery. Patient is expecting to be discharged home today. Follow with PCP in 2 weeks. The impression and plan of care has been dictated as directed. : I performed a history and examination of this patient, discussed the same with the dictator. I agree with the dictator's note ,documented as a scribe. Any additional findings or plans will be noted.
== END 2023-08-09 12:04 | disposition home or self-care (01) ==
LOC: OR 08:22 → 4SSUR 17:47 → OR 08-09 11:25 → 4SSUR 08-09 11:28
PROVIDERS: ADMIT Surgery; ATTEND Surgery
DX: L98.7 Excessive and redundant skin and subcutaneous tissue (principal); R21 Rash and other nonspecific skin eruption; E66.9 Obesity, unspecified; F41.9 Anxiety disorder, unspecified; Z68.27 Body mass index [BMI] 27.0-27.9, adult; Z98.84 Bariatric surgery status; Z79.899 Other long term (current) drug therapy; Z79.1 Long term (current) use of non-steroidal anti-inflammatories (NSAID)
CPT/HCPCS: 15830; 96372; 96361; 96365; 96367; 81025; 64999; 80048; 85027; G0378; J2250; J0330; J1644; J1100; J2710; J0690 ×2; J2405; J2001; J3010; J1170 ×3; J2795; J2704; C9113

== ENCOUNTER → 2023-08-15 | Outpatient (CLI) | payer BC ==
[2023-08-15 10:49] VITALS: BP 134/63; PULSE 66; TEMP 97.4; BMI 25.5
--- NOTE | 2023-09-20 12:20 | P.HPBAR ---
Bariatric H&P - History & Physicial H&P Date: 08/15/23 History & Physicial: Visit/CC: Raoul F/U Patient initial contact: Initial weight: 123.831 kg Initial weight in pounds: 273.00 Height: 5 ft 5.5 in Initial BMI: 44.7 Last weight: Current weight: 70.76 kg Current weight in pounds: 156.00 Current BMI: 25.5 [place] body weight (based on NIH guidelines): 57.833 kg Excess body weight loss: 80.4% The patient is a 28 year-old F who presents for Bariatric Assessment. Patient presents today for bariatric follow-up. Patient underwent recent panniculectomy. Patient feels well. Her HOOD drains are still producing serosanguineous fluid. Past Medical History Past Medical History: No Reported History Additional Past Medical History / Comment(s): migraine headaches. History of Any Multi-Drug Resistant Organisms: None Reported Past Surgical History: Bariatric Surgery, Cholecystectomy Additional Past Surgical History / Comment(s): [place] teeth extracted.Sleeve gastrectomy 01-11-22. Panniculectomy 08-08-23 Past Anesthesia/Blood Transfusion Reactions: No Reported Reaction Smoking Status: Never smoker - Past Family History Mother Family Medical History: No Reported History Father Family Medical History: Deep Vein Thrombosis (DVT) Surgical - Exam Vital Signs Temp Pulse BP 97.4 F L 66 134/63 08/15/23 10:37 08/15/23 10:37 08/15/23 10:37 - General well developed, well nourished, no distress - Eyes PERRL - Neck no masses - Respiratory normal expansion - Cardiovascular Rhythm: regular - Abdomen Abdomen: soft, non tender Bariatric Assessment & Plan Plan: Status post panniculectomy. Patient is doing well. She will follow-up in 4 weeks. Bariatric Checklist Checklist: Plan: Checklist: EGD: 1. Hiatal hernia: 2. H. Pylori: HgbA1c: Vitamin D: Smoking: Primary care physician referral: [facility] Psychiatry clearance: Cardiology clearance: Sleep study: Diet journal: VTE risk score: VTE risk level: Rehab needs at discharge:
== END ==
LOC: BARWHC3 10:20
PROVIDERS: ATTEND Surgery
DX: Z09 Encounter for follow-up examination after completed treatment for conditions other than malignant neoplasm (principal); G43.909 Migraine, unspecified, not intractable, without status migrainosus; G44.89 Other headache syndrome; F12.90 Cannabis use, unspecified, uncomplicated; Z98.890 Other specified postprocedural states; Z98.84 Bariatric surgery status
CPT/HCPCS: 99211; 99212

== ENCOUNTER → 2023-08-22 | Outpatient (CLI) | payer BC ==
[2023-08-22 11:23] VITALS: BP 127/89; PULSE 86; TEMP 97.9; BMI 25.9
--- NOTE | 2023-08-22 11:33 | P.HPBAR ---
Bariatric H&P - History & Physicial H&P Date: 08/22/23 History & Physicial: Visit/CC: jacquelyn F/U Patient initial contact: Initial weight: 123.831 kg Initial weight in pounds: 273.00 Height: 5 ft 5.5 in Initial BMI: 44.7 Last weight: Current weight: 71.668 kg Current weight in pounds: 158.00 Current BMI: 25.9 [place] body weight (based on NIH guidelines): 57.833 kg Excess body weight loss: 79.0% The patient is a 28 year-old F who presents for Bariatric Assessment. Patient is status post panniculus. She feels well. Her drains distal producing excess of 60 mL per day. Past Medical History Past Medical History: No Reported History Additional Past Medical History / Comment(s): migraine headaches. History of Any Multi-Drug Resistant Organisms: None Reported Past Surgical History: Bariatric Surgery, Cholecystectomy Additional Past Surgical History / Comment(s): [place] teeth extracted.Sleeve gastrectomy 01-11-22. Panniculectomy 08-08-23 Past Anesthesia/Blood Transfusion Reactions: No Reported Reaction Past Psychological History: Anxiety Smoking Status: Never smoker Past Alcohol Use History: Occasional Past Drug Use History: Marijuana Additional Drug Use History / Comment(s): Marijuana use occasionally. Instructed to hold 24 hrs prior to procedure. - Past Family History Mother Family Medical History: No Reported History Father Family Medical History: Deep Vein Thrombosis (DVT) Surgical - Exam Vital Signs Temp Pulse BP 97.9 F 86 127/89 08/22/23 11:14 08/22/23 11:14 08/22/23 11:14 - General well developed, well nourished, no distress - Eyes PERRL - ENT normal pinna - Neck no masses - Respiratory normal expansion - Cardiovascular Rhythm: regular - Abdomen Abdomen: soft, non tender Bariatric Assessment & Plan Plan: Status post platelet. Patient will keep her drains for another week. She'll follow-up next week for recheck. Bariatric Checklist Checklist: Plan: Checklist: EGD: 1. Hiatal hernia: 2. H. Pylori: HgbA1c: Vitamin D: Smoking: Primary care physician referral: [facility] Psychiatry clearance: Cardiology clearance: Sleep study: Diet journal: VTE risk score: VTE risk level: Rehab needs at discharge:
== END ==
LOC: BARWHC3 10:26
PROVIDERS: ATTEND Surgery
DX: Z98.84 Bariatric surgery status (principal); Z79.02 Long term (current) use of antithrombotics/antiplatelets; Z90.49 Acquired absence of other specified parts of digestive tract; F12.90 Cannabis use, unspecified, uncomplicated; F41.9 Anxiety disorder, unspecified; Z98.890 Other specified postprocedural states
CPT/HCPCS: 99212

== ENCOUNTER → 2023-08-29 | Outpatient (CLI) | payer BC ==
[2023-08-29 09:13] VITALS: BP 124/84; PULSE 103; TEMP 97.8; BMI 25.4
--- NOTE | 2023-09-19 15:15 | P.HPBAR ---
Bariatric H&P - History & Physicial H&P Date: 08/29/23 History & Physicial: Visit/CC: jacquelyn F/U Patient initial contact: Initial weight: 123.831 kg Initial weight in pounds: 273.00 Height: 5 ft 5.5 in Initial BMI: 44.7 Last weight: Current weight: 70.307 kg Current weight in pounds: 155.00 Current BMI: 25.4 [place] body weight (based on NIH guidelines): 57.833 kg Excess body weight loss: 81.0% The patient is a 28 year-old F who presents for Bariatric Assessment. Patient presents today for panniculectomy follow-up. She is doing well. Her HOOD drains have had minimal output. Past Medical History Past Medical History: No Reported History Additional Past Medical History / Comment(s): migraine headaches. History of Any Multi-Drug Resistant Organisms: None Reported Past Surgical History: Bariatric Surgery, Cholecystectomy Additional Past Surgical History / Comment(s): [place] teeth extracted.Sleeve gastrectomy 01-11-22 Past Anesthesia/Blood Transfusion Reactions: No Reported Reaction Smoking Status: Never smoker - Past Family History Mother Family Medical History: No Reported History Father Family Medical History: Deep Vein Thrombosis (DVT) Surgical - Exam Vital Signs Temp Pulse BP 97.8 F 103 H 124/84 08/29/23 08:48 08/29/23 08:48 08/29/23 08:48 - General well developed, well nourished, no distress - Eyes PERRL - ENT normal pinna - Neck no masses - Respiratory normal expansion - Cardiovascular Rhythm: regular - Abdomen Abdomen: soft, non tender Bariatric Assessment & Plan Plan: Patient HOOD drains removed. She will follow-up in 4 weeks. Bariatric Checklist Checklist: Plan: Checklist: EGD: 1. Hiatal hernia: 2. H. Pylori: HgbA1c: Vitamin D: Smoking: Primary care physician referral: [facility] Psychiatry clearance: Cardiology clearance: Sleep study: Diet journal: VTE risk score: VTE risk level: Rehab needs at discharge:
== END ==
LOC: BARWHC3 08:15
PROVIDERS: ATTEND Surgery
DX: Z09 Encounter for follow-up examination after completed treatment for conditions other than malignant neoplasm (principal); G43.909 Migraine, unspecified, not intractable, without status migrainosus; G44.89 Other headache syndrome; F12.90 Cannabis use, unspecified, uncomplicated; Z98.84 Bariatric surgery status
CPT/HCPCS: 99212

== ENCOUNTER → 2023-11-28 | Outpatient (CLI) | payer BC ==
[2023-11-28 12:19] VITALS: BP 134/82; PULSE 87; RESP 14; TEMP 97.8; BMI 24.4
--- NOTE | 2024-02-16 12:02 | P.HPBAR ---
Bariatric H&P - History & Physicial H&P Date: 11/28/23 History & Physicial: Visit/CC: post panni follow up Patient initial contact: Initial weight: 123.831 kg Initial weight in pounds: 273.00 Height: 5 ft 5.5 in Initial BMI: 44.7 Last weight: Current weight: 67.585 kg Current weight in pounds: 149.00 Current BMI: 24.4 [place] body weight (based on NIH guidelines): 57.833 kg Excess body weight loss: 85.2% The patient is a 28 year-old F who presents for Bariatric Assessment. Patient presents today for p routine follow-up. Patient with recent panniculectomy. She is doing quite well. She states her GERD is minimal. She is tolerating diet. Past Medical History Past Medical History: No Reported History Additional Past Medical History / Comment(s): migraine headaches. History of Any Multi-Drug Resistant Organisms: None Reported Past Surgical History: Bariatric Surgery, Cholecystectomy Additional Past Surgical History / Comment(s): [place] teeth extracted.Sleeve gastrectomy 01-11-22. Panniculectomy. Past Anesthesia/Blood Transfusion Reactions: No Reported Reaction Past Psychological History: Anxiety Smoking Status: Never smoker Past Alcohol Use History: Occasional Past Drug Use History: Marijuana Additional Drug Use History / Comment(s): Marijuana use occasionally. Instructed to hold 24 hrs prior to procedure. - Past Family History Mother Family Medical History: No Reported History Father Family Medical History: Deep Vein Thrombosis (DVT) Surgical - Exam Vital Signs Temp Pulse Resp BP 97.8 F 87 14 134/82 11/28/23 11:25 11/28/23 11:25 11/28/23 11:25 11/28/23 11:25 Abdomen is soft nontender. Panniculectomy the incision is well-healed Bariatric Assessment & Plan Plan: Status post sleeve gastric. Patient gerd is minimal will observe. She will follow-up in 4 weeks. Bariatric Checklist Checklist: Plan: Checklist: EGD: 1. Hiatal hernia: 2. H. Pylori: HgbA1c: Vitamin D: Smoking: Primary care physician referral: [facility] Psychiatry clearance: Cardiology clearance: Sleep study: Diet journal: VTE risk score: VTE risk level: Rehab needs at discharge:
== END ==
LOC: BARWHC3 09:20
PROVIDERS: ATTEND Surgery
DX: E66.01 Morbid (severe) obesity due to excess calories (principal); K21.9 Gastro-esophageal reflux disease without esophagitis; Z98.84 Bariatric surgery status; Z68.24 Body mass index [BMI] 24.0-24.9, adult; Z90.3 Acquired absence of stomach [part of]
CPT/HCPCS: 99211

== ENCOUNTER 2024-09-24 04:54 | Emergency (ER) | payer BC ==
[2024-09-24 05:06] VITALS: BP 166/99; PULSE 92; RESP 18; TEMP 97.6
--- NOTE | 2024-09-24 05:20 | ED ---
General Adult HPI - General Chief complaint: Back Pain/Injury Stated complaint: Back Pain Time Seen by Provider: 09/24/24 05:05 Source: patient, RN notes reviewed, old records reviewed Mode of arrival: ambulatory Limitations: no limitations - History of Present Illness Initial comments: 9-year-old female with chronic low back pain presenting with low back pain that is worsened over the past several days. No specific injury. Patient states this did worsen after doing some sweeping at work. No trauma. No bowel or bladder incontinence. No numbness to the legs. Pain is bilateral low back. No fever. She follows with [place] [facility] and has an MRI, injections and is receiving pain medication including Mona and muscle relaxer. - Related Data Home Medications Medication Instructions Recorded Confirmed tiZANidine [Zanaflex] 4 mg PO HS 07/31/21 11/28/23 Previous Rx's Medication Instructions Recorded Acetaminophen Tab [Tylenol] 1,000 mg PO Q6HR PRN #30 tablet 08/09/23 Ibuprofen [Motrin] 600 mg PO Q8HR PRN #30 tab 08/09/23 oxyCODONE HCL [OxyIR] 5 mg PO Q6H PRN 3 Days #12 tab 08/09/23 Ibuprofen [Motrin] 600 mg PO Q8HR PRN #24 tab 09/24/24 Allergies Allergy/AdvReac Type Severity Reaction Status Date / Time No Known Allergies Allergy Verified 09/24/24 05:06 Review of Systems ROS Statement: Those systems with pertinent positive or pertinent negative responses have been documented in the HPI. ROS Other: All systems not noted in ROS Statement are negative. Past Medical History Past Medical History: No Reported History Additional Past Medical History / Comment(s): migraine headaches. History of Any Multi-Drug Resistant Organisms: None Reported Past Surgical History: Bariatric Surgery, Cholecystectomy Additional Past Surgical History / Comment(s): [place] teeth extracted.Sleeve gastrectomy 01-11-22. Panniculectomy. Past Anesthesia/Blood Transfusion Reactions: No Reported Reaction Past Psychological History: Anxiety Smoking Status: Never smoker Past Alcohol Use History: Occasional Past Drug Use History: Marijuana - Past Family History Mother Family Medical History: No Reported History Father Family Medical History: Deep Vein Thrombosis (DVT) General Exam Limitations: no limitations General appearance: alert, in no apparent distress Head exam: Present: atraumatic, normocephalic Eye exam: Present: normal appearance, PERRL ENT exam: Present: normal exam Neck exam: Present: normal inspection. Absent: tenderness, meningismus Respiratory exam: Present: normal lung sounds bilaterally. Absent: respiratory distress, wheezes Cardiovascular Exam: Present: regular rate, normal rhythm GI/Abdominal exam: Present: soft. Absent: distended, tenderness Extremities exam: Present: normal inspection, normal capillary refill Back exam: Present: normal inspection, paraspinal tenderness. Absent: vertebral tenderness Neurological exam: Present: alert, oriented X3, CN II-XII intact. Absent: motor sensory deficit Psychiatric exam: Present: normal affect, normal mood Skin exam: Present: warm, dry, intact, normal color Course Vital Signs 09/24/24 04:59 Temperature 97.6 F Pulse Rate 92 Respiratory 18 Rate Blood Pressure 166/99 O2 Sat by Pulse 99 Oximetry Medical Decision Making - Medical Decision Making Was pt. sent in by a medical professional or institution (, PA, DIGITAL MEDIA STRATEGIST, urgent care, hospital, or senior care...) When possible be specific @ -No Did you speak to anyone other than the patient for history (EMS, parent, family, police, friend...)? What history was obtained from this source @ -No Did you review nursing and triage notes (agree or disagree)? Why? @ -I reviewed and agree with nursing and triage notes Were old charts reviewed (outside hosp., previous admission, EMS record, old EKG, old radiological studies, urgent care reports/EKG's, senior care records)? Report findings @ -No old charts were reviewed Differential Back Pain: Strain, zoster, cauda equina syndrome, epidural abscess, vertebral osteomyelitis, discitis, fracture, subluxation, disc herniation, DJD, spinal stenosis, dissection, AAA, pancreatitis, peptic ulcer disease, pyelonephritis, kidney stone, this is not meant to be an all-inclusive list. EKG interpreted by me (3pts min.). @ -As above X-rays interpreted by me (1pt min.). @ -None done CT interpreted by me (1pt min.). @ -None done U/S interpreted by me (1pt. min.). @ -None done What testing was considered but not performed or refused? (CT, X-rays, U/S, labs)? Why? @ -None What meds were considered but not given or refused? Why? @ -None Did you discuss the management of the patient with other professionals (professionals i.e. , PA, DIGITAL MEDIA STRATEGIST, lab, RT, psych nurse, criminal justice social worker, environmental monitoring technician, teacher, desk officer, wrapper caser)? Give summary @ -No Was smoking cessation discussed for >3mins.? @ -No Was critical care preformed (if so, how long)? @ -No Were there social determinants of health that impacted care today? How? (Homelessness, low income, unemployed, alcoholism, drug addiction, transportation, low edu. Level, literacy, decrease access to med. care, longterm, rehab)? @ -No Was there de-escalation of care discussed even if they declined (Discuss DNR or withdrawal of care, Hospice)? DNR status @ -No What co-morbidities impacted this encounter? (DM, HTN, Smoking, COPD, CAD, Cancer, CVA, ARF, Chemo, Hep., AIDS, mental health diagnosis, sleep apnea, morbid obesity)? @ -[Chronic back pain Was patient admitted / discharged? Hospital course, mention meds given and route, prescriptions, significant lab abnormalities, going to OR and other pertinent info. @ 29-year-old female with acute on chronic back pain. Patient does have good follow-up as an outpatient with pain management and [place] [facility]. She is on opiate pain medication. She is not currently on the anti- inflammatories. Will be prescribed a course of Motrin and should follow with her provider regarding her ongoing back pain. No alarming features on history and physical exam Undiagnosed new problem with uncertain prognosis? @ -No Drug Therapy requiring intensive monitoring for toxicity (Heparin, Nitro, Insulin, Cardizem)? @ -No Were any procedures done? @ -No Diagnosis/symptom? @ -Acute on chronic low back pain Acute, or Chronic, or Acute on Chronic? @ -Acute on chronic Uncomplicated (without systemic symptoms) or Complicated (systemic symptoms)? @ -Default Side effects of treatment? @ -No Exacerbation, Progression, or Severe Exacerbation? @ -No Poses a threat to life or bodily function? How? (Chest pain, [place], [place], pneumonia, PE, COPD, DKA, ARF, appy, cholecystitis, CVA, Diverticulitis, Homicidal, Suicidal, threat to staff... and all critical care pts) @ -No Disposition Clinical Impression: Strain of lumbar region, Mechanical back pain Disposition: HOME SELF-CARE Condition: Fair Instructions (If sedation given, give patient instructions): Acute Low Back Pain (ED) Prescriptions: Ibuprofen [Motrin] 600 mg PO Q8HR PRN #24 tab PRN Reason: Pain Is patient prescribed a controlled substance at d/c from ED?: No Referrals: Thai Simpson MD [Primary Care Provider] - 1-2 days Dania Coburn DO [Doctor of Osteopathic Medicine] - 1-2 days Quique Amador DO [STAFF PHYSICIAN] - 1-2 days Time of Disposition: 05:19
[2024-09-24] MEDS: KETOROLAC 15 MG/ML 1 ML VIAL IM STA (05:23)
== END 2024-09-24 05:05 | disposition home or self-care (01) ==
LOC: EC 04:54
DX: S39.012A Strain of muscle, fascia and tendon of lower back, initial encounter (principal); G89.29 Other chronic pain; X58.XXXA Exposure to other specified factors, initial encounter; Y99.0 Civilian activity done for income or pay
CPT/HCPCS: 99283; 96372; J1885